=== PATIENT | male | born 1945 | race African-American/Black ===

== ENCOUNTER 2023-08-02 20:38 | Observation (INO) ==
--- NOTE | 2023-08-02 20:56 | Emergency Department Note ---
Impression & Plan Altered mental status ED Provider Note ED Provider Note NAME: SHANON [id number] CHRISTA AGE:78 SEX: Male : 1945 ARRIVES VIA: EMS INFORMANT: Patient ED PROVIDER(s): Yolanda Pinzon DO CHIEF COMPLAINT: Altered mental status HPI: This is a 78-year-old male presents via EMS from a local correctional facility due to staff concern for altered mental status. Patient reported to be sleeping all day. EMS reports patient was noted to not be acting himself this evening. They state patient typically can walk without difficulty and mother does have a history of dementia typically can carry on mostly normal conversations. They state that they noticed patient was having difficulty walking and appeared to be leaning to the left. He denied any complaints of pain including headaches, denied dizziness. EMS states staff reported no other recent changes. Prehospital blood glucose reassuring. EMS reports patient appeared to be in atrial fibrillation during transport although on arrival here appears to be in a sinus rhythm. No reported trauma or injury. No anticoagulation on medication list. PAST MEDICAL HISTORY:See Below PAST SURGICAL HISTORY:See Below FAMILY HISTORY:See Below SOCIAL HISTORY:See Below HOME MEDICATIONS:See Below ALLERGIES:See Below VITALS:See Below PHYSICAL EXAMINATION: GENERAL: alert, well appearing, well nourished, no distress, non-toxic, shackles in place upper and lower extremities b/l EYE EXAM: normal conjunctiva, PERRL and EOM's grossly intact OROPHARYNX: no exudate, no erythema, lips, buccal mucosa, and tongue normal and mucous membranes are moist, poor dentition NECK: supple, no nuchal rigidity, no adenopathy, non-tender LUNGS: Clear to auscultation. Normal chest wall mechanics, no w/r/r HEART: no murmurs, S1 normal and S2 normal ABDOMEN: abdomen soft, non-tender, normo-active bowel sounds, no masses, no rebound or guarding. BACK: Back is symmetrical on inspection and there is no deformity, no midline tenderness, no CVA tenderness. SKIN: no rashes, petechiae, orbruising UPPER EXTREMITIES: upper extremities are grossly normal. FROM, nml pulses b/l. LOWER EXTREMITIES: No pitting edema. FROM, nml pulses b/l. NEURO EXAM: Confused, cranial nerves II-XII grossly intact, normal speech, no facial droop,patient with equal handgrip, and wiggles toes bilaterally, gross sensation intact. No ataxia. When shackles were removed, patient could not follow commands for further neuro testing. Vital Signs: reviewed and remarkable Differential Diagnosis: dehydration, stroke, anemia, hypoglycemia, hyponatremia, hypernatremia, urinary tract infection, pneumonia, bronchitis, sepsis, gastroenteritis, additional abdominal pathology, metabolic abnormalities, as well as others were considered MEDICAL DECISION MAKING: This is a 78-year-old male presents from a local correctional facility due to concern for altered mental status. Difficulty obtaining any history from the patient due to his history of dementia. Labs drawn and sent, IV established, EKG and chest x-ray performed bedside interpreted by me and patient monitor on telemetry. He was started on gentle IV fluid hydration and sent for CT/CTA. He continued to be well-appearing throughout and denied any pain, he did not appear to be in any distress. It was difficult to have the patient perform a neurologic exam although his handgrips did seem equal and he was moving all extremities spontaneously. He could not cooperate for other neuro testing. CT angiography revealed likely thrombotic disease. Due to concern for findings initially reported by staff who know him best and in consideration for age despite limitations of the exam and ability to obtain history at bedside, the case was discussed with the hospitalist team for additional evaluation and management. I did call and update the RN in the infirmary at [facility] to discuss evaluation here and need for admission as well as else so to confirm patient's baseline mentation and last known well. Consultation(s): 0135: Discussed with RENÉ Duncan, at [facility]. Last known well 1135 am when patient went to bed. He tends to be awake at night and sleeps during the day. He did not get up at his normal time, and so the staff went in to wake him up at 7pm and noticed he was not his normal self. He did not seem to want to talk so he was wheeled to his meal and they felt he was leaning to the left. He did not eat anything offered. Staff concerned due to change in behavior and mentation so 911 called. 0207: Discussed with Dr. Flores, [facility] hospitalist, for additional evaluation and mgmt. ER Treatment Provided: See below Diagnostics Interpreted By Me: -ECG: Normal sinus at 88, leftward axis, normal intervals, no acute ST/T wave changes -Cardiac Monitoring: An order was placed for continuous cardiac monitoring. The monitor shows a rate of 88 with normal sinus rhythm. -Laboratory studies: As stated above and show below. -Imaging studies: X-ray Chest: A single view study of the chest was reviewed and was negative for cardiomegaly, focal infiltrate, effusion, pulmonary edema, or wide mediastinum. Triage Nursing Note Reviewed Prior/Outside Records Reviewed - med list from [facility] reviewed Past Med/Surg History Problem List (Updated 08/03/23 @ 10:05 by Cirilo Elliott DO) Stroke-like symptom Altered mental status (Acute) Social History Smoking Status: Current some day smoker Tobacco Type: Cigarettes Preferred Language: Wolof Rn On Site Required: No Beliefs That Will Affect Care: None Current Living Situation: Other Feels Safe at Home: Yes Allergies Allergies Allergy/AdvReac Type Severity Reaction Status Date / Time No Known Allergies Allergy Verified 08/02/23 21:38 Home Meds Home Medications Medication Instructions Recorded Confirmed amlodipine 5 mg tablet 5 mg PO DAILY 08/02/23 08/02/23 brimonidine 0.2 % eye drops 1 drp OPR BID 08/02/23 08/02/23 dorzolamide-timolol (PF) 2 %-0.5 % 1 drp OPB BID 08/02/23 08/02/23 eye drops in a dropperette (Cosopt (PF)) latanoprost 0.005 % eye drops 1 drp OPR HS 08/02/23 08/02/23 pilocarpine HCl 4 % eye drops 1 drp OPR TID 08/02/23 08/02/23 risperidone 1 mg tablet 1 mg PO HS 08/02/23 08/02/23 risperidone 2 mg tablet 2 mg PO DAILY 08/02/23 08/02/23 sodium chloride 5 % eye drops 1 drp OPL BID 08/02/23 08/02/23 (Brian 128) sodium chloride 5 % eye ointment 1 applic OPL QID 08/02/23 08/02/23 Results & Data (ED) Vital Signs Vital Signs - 24 hr 08/02/23 20:32 08/02/23 20:48 08/02/23 20:51 Temperature 36.9 C Temperature Source Oral Pulse Rate 93 H 93 H Pulse Rate from SpO2 Sensor Respiratory Rate 22 Blood Pressure 119/60 Blood Pressure Mean 79 Blood Pressure Position Lying Pulse Oximetry 96 98 Oxygen Delivery Method Room Air Room Air Sepsis Recent Fever Within 48 Hours No Sepsis New/Unexplained Change in Mental Status Yes Sepsis Action Taken by Nursing Physician Notified 08/02/23 20:51 08/02/23 21:00 08/02/23 21:27 Temperature Temperature Source Pulse Rate 88 88 82 Pulse Rate from SpO2 Sensor 88 88 82 Respiratory Rate 16 17 13 Blood Pressure Blood Pressure Mean Blood Pressure Position Pulse Oximetry 99 100 98 Oxygen Delivery Method Sepsis Recent Fever Within 48 Hours Sepsis New/Unexplained Change in Mental Status Sepsis Action Taken by Nursing 08/02/23 22:00 08/02/23 22:00 08/02/23 23:30 Temperature Temperature Source Pulse Rate 85 74 Pulse Rate from SpO2 Sensor Respiratory Rate 14 18 Blood Pressure 146/102 H 128/91 Blood Pressure Mean 132 103 Blood Pressure Position Pulse Oximetry 96 Oxygen Delivery Method Sepsis Recent Fever Within 48 Hours Sepsis New/Unexplained Change in Mental Status Sepsis Action Taken by Nursing 08/03/23 00:37 Temperature Temperature Source Pulse Rate 68 Pulse Rate from SpO2 Sensor Respiratory Rate Blood Pressure Blood Pressure Mean Blood Pressure Position Pulse Oximetry Oxygen Delivery Method Sepsis Recent Fever Within 48 Hours Sepsis New/Unexplained Change in Mental Status Sepsis Action Taken by Nursing Laboratory Data 08/03/23 05:58 08/03/23 04:10 Lab Results 08/02/23 08/02/23 08/02/23 Range/Units 21:10 21:10 21:12 WBC 6.40 (4.8-10.8) K/ul RBC 4.95 (4.70-6.10) M/uL Hgb 13.9 L (14.0-18.0) g/dl POC Hgb 13.9 L (14.0-18.0) g/dl Hct 41.1 L (42.0-52.0) % POC Hct 41 L (42-52) % MCV 83.0 (80.0-100.0) fL MCH 28.1 (25.0-34.0) pg MCHC 33.8 (32.0-36.0) g/dL RDW Std Deviation 39.1 (36.4-46.3) fL RDW Coeff of Carolyn 13.1 (11.5-14.5) % Plt Count 148 (130-400) K/uL MPV 10.2 (9.4-12.4) fL Immature Gran % (Auto) 0.3 % Neut % (Auto) 71.5 % Lymph % (Auto) 17.0 % Walker % (Auto) 8.8 % Eos % (Auto) 1.9 % Baso % (Auto) 0.5 % Neut # (Auto) 4.58 (1.40-6.50) K/uL Lymph # (Auto) 1.09 L (1.20-3.40) K/uL Walker # (Auto) 0.56 (0.11-0.59) K/uL Eos # (Auto) 0.12 (0.00-0.50) K/uL Baso # (Auto) 0.03 (0.00-0.20) K/uL Immature Gran # (Auto) 0.02 (0.01-0.20) K/uL PT 11.4 (9.0-12.0) Seconds INR 1.1 (0.9-1.1) APTT 31 (21-31) Seconds PTT Ratio 1.2 POC Sodium 143 (135-144) mmol/L Sodium 142 (136-145) mmol/L POC Potassium 3.6 (3.3-5.0) mmol/L Potassium 3.7 (3.5-5.1) mmol/L POC Chloride 108 (101-112) mmol/L Chloride 108 H (98-107) mmol/L Carbon Dioxide 27 (21-32) mmol/L POC Total CO2 25 (24-31) mmol/L Anion Gap 7 (3-11) POC Anion Gap 15.0 L (16-25) mmol/L POC BUN 22 H (7-18) mg/dl BUN 24 H (6-23) mg/dl Creatinine 1.11 (0.6-1.4) mg/dl POC Creatinine 1.1 (0.6-1.3) mg/dl Est Cr Clr Drug Dosing 56.6 ml/min Est GFR ( Amer) 74.4 ml/min Est GFR (Non-Af Amer) 64.2 ml/min BUN/Creatinine Ratio 21.6 H (10-20) Glucose 112 H (70-99(Fasting)) mg/dl POC Glucose (other) 111 H (70-99) mg/dl Estimat Average Glucose mg/dl Estimated Ave Glu mmol/L 6.6 mmol/L Estimated Ave Glu mg/dL 120 mg/dL Hemoglobin A1c 5.8 H (4.5-5.6) % Hgb A1c Pathologist Com Calcium 10.3 (8.6-10.3) mg/dl POC Ioniz Calcium Richard 1.27 (1.12-1.32) mmol/l Magnesium 2.0 (1.7-2.4) mg/dl Total Bilirubin 0.6 (0.2-1.0) mg/dl AST 40 H (13-39) U/L ALT 14 (7-52) U/L Alkaline Phosphatase 56 (34-104) U/L Troponin I High Sens 24.2 H (0-20) pg/ml Total Protein 7.3 (6.0-8.3) gm/dl Albumin 4.4 (3.4-5.0) gm/dl Globulin 2.9 (2.5-4.0) gm/dl Albumin/Globulin Ratio 1.5 (0.9-2) TSH 3.536 (0.300-4.500) uIu/ml 08/02/23 Range/Units 23:23 WBC (4.8-10.8) K/ul RBC (4.70-6.10) M/uL Hgb (14.0-18.0) g/dl POC Hgb (14.0-18.0) g/dl Hct (42.0-52.0) % POC Hct (42-52) % MCV (80.0-100.0) fL MCH (25.0-34.0) pg MCHC (32.0-36.0) g/dL RDW Std Deviation (36.4-46.3) fL RDW Coeff of Carolyn (11.5-14.5) % Plt Count (130-400) K/uL MPV (9.4-12.4) fL Immature Gran % (Auto) % Neut % (Auto) % Lymph % (Auto) % Walker % (Auto) % Eos % (Auto) % Baso % (Auto) % Neut # (Auto) (1.40-6.50) K/uL Lymph # (Auto) (1.20-3.40) K/uL Walker # (Auto) (0.11-0.59) K/uL Eos # (Auto) (0.00-0.50) K/uL Baso # (Auto) (0.00-0.20) K/uL Immature Gran # (Auto) (0.01-0.20) K/uL PT (9.0-12.0) Seconds INR (0.9-1.1) APTT (21-31) Seconds PTT Ratio POC Sodium (135-144) mmol/L Sodium (136-145) mmol/L POC Potassium (3.3-5.0) mmol/L Potassium (3.5-5.1) mmol/L POC Chloride (101-112) mmol/L Chloride (98-107) mmol/L Carbon Dioxide (21-32) mmol/L POC Total CO2 (24-31) mmol/L Anion Gap (3-11) POC Anion Gap (16-25) mmol/L POC BUN (7-18) mg/dl BUN (6-23) mg/dl Creatinine (0.6-1.4) mg/dl POC Creatinine (0.6-1.3) mg/dl Est Cr Clr Drug Dosing ml/min Est GFR ( Amer) ml/min Est GFR (Non-Af Amer) ml/min BUN/Creatinine Ratio (10-20) Glucose (70-99(Fasting)) mg/dl POC Glucose (other) (70-99) mg/dl Estimat Average Glucose mg/dl Estimated Ave Glu mmol/L mmol/L Estimated Ave Glu mg/dL mg/dL Hemoglobin A1c (4.5-5.6) % Hgb A1c Pathologist Com Calcium (8.6-10.3) mg/dl POC Ioniz Calcium Richard (1.12-1.32) mmol/l Magnesium (1.7-2.4) mg/dl Total Bilirubin (0.2-1.0) mg/dl AST (13-39) U/L ALT (7-52) U/L Alkaline Phosphatase (34-104) U/L Troponin I High Sens 26.6 H (0-20) pg/ml Total Protein (6.0-8.3) gm/dl Albumin (3.4-5.0) gm/dl Globulin (2.5-4.0) gm/dl Albumin/Globulin Ratio (0.9-2) TSH (0.300-4.500) uIu/ml Administered Medications Amlodipine Besylate (Amlodipine Besylate 5 Mg Tab) 5 mg PO QAM [facility] Stop: 09/03/23 08:59 Last Admin: 08/04/23 07:53 Dose: 5 mg Documented By: NGOZI Aspirin (Aspirin 81 Mg Ectab) 81 mg PO DAILY [facility] Stop: 09/03/23 08:59 Last Admin: 08/04/23 07:52 Dose: 81 mg Documented By: NGOZI Atorvastatin Calcium (Atorvastatin 20 Mg Tab) 20 mg PO QAM [facility] Stop: 09/02/23 08:59 Last Admin: 08/04/23 07:53 Dose: 20 mg Documented By: Admin: 08/03/23 10:56 Dose: 20 mg Documented By: NGOZI Brimonidine Tartrate (Brimonidine Tartrate 0.2% 5ml) 1 drops OPR BID [facility] Stop: 09/02/23 08:59 Last Admin: 08/04/23 07:54 Dose: 1 drops Documented By: Admin: 08/03/23 22:00 Dose: 1 drops Documented By: Admin: 08/03/23 09:03 Dose: 1 drops Documented By: KIMBERLY Clopidogrel Bisulfate (Clopidogrel Bisulfate 75 Mg Tab) [facility] [place]: 09/02/23 14:44 Last Admin: 08/04/23 07:53 Dose: 75 mg Documented By: Admin: 08/03/23 18:32 Dose: 75 mg Documented By: NGOZI Dorzolamide/Timolol (Dorzolamide/Timolol 22.3/6.8mg/Ml 10 Ml Btl) 1 drops OPB BID [facility] Stop: 09/02/23 08:59 Last Admin: 08/04/23 07:54 Dose: 1 drops Documented By: Admin: 08/03/23 22:00 Dose: 1 drops Documented By: Admin: 08/03/23 09:09 Dose: Not Given Documented By: KIMBERLY Enoxaparin Sodium (Enoxaparin Inj 40 Mg/0.4 Ml Syr) [facility] [place]: 09/02/23 08:59 Last Admin: 08/04/23 07:53 Dose: 40 mg Documented By: Admin: 08/03/23 09:04 Dose: 40 mg Documented By: KIMBERLY Latanoprost (Latanoprost 0.005% Op Soln 2.5 Ml Btl) 1 drops OPR HS ELISA Stop: 09/02/23 20:59 Last Admin: 08/04/23 05:54 Dose: Not Given Documented By: KRT Pilocarpine HCl (Pilocarpine Hcl 4% Op Soln 15 Ml Btl) 1 drops OPR TID ELISA Stop: 09/02/23 08:59 Last Admin: 08/04/23 07:54 Dose: 1 drops Documented By: Admin: 08/03/23 22:00 Dose: 1 drops Documented By: Admin: 08/03/23 14:15 Dose: Not Given Documented By: Admin: 08/03/23 09:03 Dose: 1 drops Documented By: JEFFERSONN Risperidone (Risperidone 2 Mg Tablet) 2 mg PO DAILY ELISA Stop: 09/02/23 08:59 Last Admin: 08/04/23 07:53 Dose: 2 mg Documented By: Admin: 08/03/23 10:50 Dose: 2 mg Documented By: NGOZI Risperidone (Risperidone 1 Mg Tablet) 1 mg PO HS [facility] Stop: 09/02/23 20:59 Last Admin: 08/04/23 05:54 Dose: Not Given Documented By: KRT Sodium Chloride (Sodium Chloride 5% Op Soln 15 Ml Btl) 1 drops OPL BID ELISA Stop: 09/02/23 08:59 Last Admin: 08/04/23 07:54 Dose: 1 drops Documented By: Admin: 08/03/23 22:00 Dose: 1 drops Documented By: Admin: 08/03/23 09:13 Dose: 1 drops Documented By: MMDay Sodium Chloride (Sodium Chloride 5% (Brian) Op Oint 3.5 Gm Tube) 1 appln OPL QID ELISA Stop: 09/02/23 08:59 Last Admin: 08/04/23 07:54 Dose: 1 appln Documented By: Admin: 08/03/23 22:00 Dose: 1 appln Documented By: Admin: 08/03/23 18:33 Dose: 1 appln Documented By: Admin: 08/03/23 14:14 Dose: Not Given Documented By: Admin: 08/03/23 09:12 Dose: 1 appln Documented By: MMDay Discontinued Medications Amlodipine Besylate (Amlodipine Besylate 5 Mg Tab) 5 mg PO NOW ONE Stop: 08/03/23 18:03 Last Admin: 08/03/23 18:32 Dose: 5 mg Documented By: NGOZI Aspirin (Aspirin 81 Mg Chew) 324 mg PO NOW STA Stop: 08/03/23 02:24 Last Admin: 08/03/23 04:04 Dose: Not Given Documented By: YOLIE Aspirin (Aspirin 300 Mg Supp) 300 mg LA ONE ONE Stop: 08/03/23 02:47 Last Admin: 08/03/23 03:48 Dose: 300 mg Documented By: YOLIE Sodium Chloride (Nss) 1,000 mls @ 150 mls/hr IV .Q6H40M ELISA Stop: 09/01/23 20:59 Last Infusion: 08/03/23 04:08 Dose: Infused Documented By: Admin: 08/02/23 22:04 Dose: 150 mls/hr Documented By: BRIDGER Potassium Chloride 20 meq/ (Lactated Ringer's) 1,010 mls @ 100 mls/hr IV .Q10H6M ONE Stop: 08/03/23 12:35 Last Infusion: 08/03/23 14:18 Dose: Infused Documented By: Infusion: 08/03/23 05:50 Dose: 100 mls/hr Documented By: Admin: 08/03/23 04:01 Dose: 80 mls/hr Documented By: YOLIE Lorazepam 0.5 mg/ Syringe 0.5 mls @ 2 mls/min IV ONE ONE Stop: 08/03/23 14:16 Last Admin: 08/03/23 14:15 Dose: 2 mls/min Documented By: NGOZI Ioversol (Optiray 320 125ml) 119 ml IV ONCE ONE Stop: 08/02/23 21:22 Last Admin: 08/02/23 21:22 Dose: 119 ml Documented By: ASHLIE Olanzapine (Olanzapine Zydis 5 Mg Orally Dis. Tab) 5 mg PO ONE ONE Stop: 08/03/23 16:15 Last Admin: 08/03/23 18:32 Dose: 5 mg Documented By: NGOZI Imaging Data Radiologist's Impression: Head CT 08/02/23 20:51 Exam(s): CT HEAD Without Contrast EXAM: CT Head Without Intravenous Contrast CLINICAL HISTORY: Reason for exam: neuro deficit, acute stroke suspected. TECHNIQUE: Axial computed tomography images of the head/brain without intravenous contrast. CTDI is 31.65 mGy and DLP is 320.01 mGy-cm. Automated exposure control was utilized for the study. A dose lowering technique was utilized adhering to the principles of ALARA. COMPARISON: No relevant prior studies available. FINDINGS: Study is suboptimal secondary to motion artifact. Brain: Unremarkable. No hemorrhage. No significant white matter disease. No edema. Ventricles: Mild to moderate ventriculomegaly. Bones/joints: Unremarkable. No acute fracture. Soft tissues: Unremarkable. Sinuses: Unremarkable as visualized. No acute sinusitis. Mastoid air cells: Unremarkable as visualized. No mastoid effusion. IMPRESSION: No evidence of acute intracranial pathology. Electronically signed by: Shara Lugo MD 08/03/23 00:09 AM Head CTA 08/02/23 20:51 CR Exam(s): CTA HEAD With Contrast IV Amt: 120 ML OPTIRAY 320 EXAM: CT Angiography Head With Intravenous Contrast CLINICAL HISTORY: Reason for exam: neuro deficit, acute stroke suspected. TECHNIQUE: Axial computed tomographic angiography images of the head with intravenous contrast. CTDI is 67.93 mGy and DLP is 1098.96 mGy-cm. Automated exposure control was utilized for the study. A dose lowering technique was utilized adhering to the principles of ALARA. MIP reconstructed images were created and reviewed. CONTRAST: Patient received 120 ML OPTIRAY 320 of IV contrast COMPARISON: No relevant prior studies available. FINDINGS: Right internal carotid artery: No acute findings. Intracranial segment is patent with no significant stenosis. No aneurysm. Right anterior cerebral artery: Unremarkable. No occlusion or significant stenosis. No aneurysm. Right middle cerebral artery: Unremarkable. No occlusion or significant stenosis. No aneurysm. Right posterior cerebral artery: There is abrupt high-grade stenosis of the right P1 segment with recannulization and diminished enhancement of the distal vessel.. No aneurysm. Right vertebral artery: Unremarkable as visualized. Left internal carotid artery: No acute findings. Intracranial segment is patent with no significant stenosis. No aneurysm. Left anterior cerebral artery: Unremarkable. No occlusion or significant stenosis. No aneurysm. Left middle cerebral artery: Unremarkable. No occlusion or significant stenosis. No aneurysm. Left posterior cerebral artery: Unremarkable. No occlusion or significant stenosis. No aneurysm. Left vertebral artery: Unremarkable as visualized. Basilar artery: Unremarkable. No occlusion or significant stenosis. No aneurysm. IMPRESSION: Focal high-grade stenosis of the right P1 segment with diminished enhancement of the distal vessel concerning for acute thrombotic disease. Communications: Verify Receipt Electronically signed by: Shara Lugo MD 08/03/23 00:06 AM Neck CTA 08/02/23 20:51 Exam(s): CTA NECK With Contrast IV Amt: 120 ML OPTIRAY 320 EXAM: CT Angiography Neck With Intravenous Contrast CLINICAL HISTORY: Reason for exam: neuro deficit, acute stroke suspected. TECHNIQUE: Routine carotid CT angiography protocol was performed with intravenous contrast. NASCET criteria using the distal ICAs for comparison were used for evaluation of stenoses. CTDI is 64.34 mGy and DLP is 1098.96 mGy-cm. Automated exposure control was utilized for the study. A dose lowering technique was utilized adhering to the principles of ALARA. MIP reconstructed images were created and reviewed. CONTRAST: Patient received 120 ML OPTIRAY 320 of IV contrast COMPARISON: None. FINDINGS: VASCULATURE: Right common carotid artery: Unremarkable. No occlusion or significant stenosis. No dissection. Right internal carotid artery: Unremarkable. Extracranial segment is patent with no occlusion or significant stenosis. No dissection. Right external carotid artery: Unremarkable. No occlusion. Right vertebral artery: Unremarkable. No occlusion or significant stenosis. No dissection. Left common carotid artery: Unremarkable. No occlusion or significant stenosis. No dissection. Left internal carotid artery: Unremarkable. Extracranial segment is patent with no occlusion or significant stenosis. No dissection. Left external carotid artery: Unremarkable. No occlusion. Left vertebral artery: Unremarkable. No occlusion or significant stenosis. No dissection. NECK: Bones/joints: Unremarkable. No acute fracture. Soft tissues: Unremarkable. Lung apices: Clear. CAROTID STENOSIS REFERENCE USING NASCET CRITERIA: % ICA stenosis = (1 - narrowest ICA diameter/diameter of distal cervical ICA) x 100. Mild - <50% stenosis. Moderate - 50-69% stenosis. Severe - 70-94% stenosis. Near occlusion - 95-99% stenosis. Occluded - 100% stenosis. IMPRESSION: Negative CTA neck. Electronically signed by: Shara Lugo MD 08/03/23 00:10 AM Discharge Plan Visit Data Chief Complaint: Altered Mental Status Stated Complaint: AMS, LEANING TO L SIDE, HX OF DEMENTIA ED Provider: Yolanda Pinzon Discharge Problem: Altered mental status Patient Disposition: Admitted As Inpatient Discharge Instructions Interventions: ED Discharge Assessment Last Done: 08/03/23 04:21
[2023-08-02] MEDS: OPTIRAY 320 125ml IV ONE (21:22)
[2023-08-02 21:24] LABS: iSTAT Creatinine 1.1 mg/dl (0.6-1.3); iSTAT Hemoglobin 13.9 g/dl (14.0-18.0); iSTAT Ionized Calcium 1.27 mmol/l (1.12-1.32); iSTAT Potassium 3.6 mmol/L (3.3-5.0)
[2023-08-02 21:44] LABS: Basophils # (auto) 0.03 K/uL (0.00-0.20); Basophils % (auto) 0.5 %; Eosinophils # (auto) 0.12 K/uL (0.00-0.50); Eosinophils % (auto) 1.9 %; Hematocrit (blood only) 41.1 % (42.0-52.0); Hemoglobin 13.9 g/dl (14.0-18.0); Immature Granulocytes # (auto) 0.02 K/uL (0.01-0.20); Immature Granulocytes % (auto) 0.3 %; Lymphocytes # (auto) 1.09 K/uL (1.20-3.40); Mean Corpuscular Hemoglobin 28.1 pg (25.0-34.0); Mean Corpuscular Hgb Conc 33.8 g/dL (32.0-36.0); Mean Platelet Volume 10.2 fL (9.4-12.4); Monocytes # (auto) 0.56 K/uL (0.11-0.59); Monocytes % (auto) 8.8 %; Neutrophils # (auto) 4.58 K/uL (1.40-6.50); Neutrophils % (auto) 71.5 %; Platelet Count 148 K/uL (130-400); RDW Coefficient of Variation 13.1 % (11.5-14.5); RDW Standard Deviation 39.1 fL (36.4-46.3); Red Blood Count 4.95 M/uL (4.70-6.10)
[2023-08-02 21:47] LABS: Albumin Globulin Ratio 1.5 (0.9-2); Albumin Level 4.4 gm/dl (3.4-5.0); BUN Creatinine Ratio 21.6 (10-20); Bilirubin,Total 0.6 mg/dl (0.2-1.0); Calcium 10.3 mg/dl (8.6-10.3); Creatinine Clr Calc Pharmacy 56.6 ml/min; Est GFR (African American) 74.4 ml/min; Est GFR (Non-African American) 64.2 ml/min; Globulin 2.9 gm/dl (2.5-4.0); Potassium 3.7 mmol/L (3.5-5.1); Total Protein 7.3 gm/dl (6.0-8.3)
[2023-08-02 21:52] LABS: Troponin I High Sensitivity 24.2 pg/ml (0-20)
[2023-08-02 21:58] LABS: INR 1.1 (0.9-1.1); Partial Thromboplastin Ratio 1.2; Partial Thromboplastin Time 31 Seconds (21-31); Prothrombin Time 11.4 Seconds (9.0-12.0)
[2023-08-02] MEDS: SODIUM CHLORIDE 0.9% 1,000 ML IV SCH (22:04)
--- NOTE | 2023-08-03 00:07 | CT Scan Report ---
Exam(s): CTA HEAD With Contrast IV Amt: 120 ML OPTIRAY 320 EXAM: CT Angiography Head With Intravenous Contrast CLINICAL HISTORY: Reason for exam: neuro deficit, acute stroke suspected. TECHNIQUE: Axial computed tomographic angiography images of the head with intravenous contrast. CTDI is 67.93 mGy and DLP is 1098.96 mGy-cm. Automated exposure control was utilized for the study. A dose lowering technique was utilized adhering to the principles of ALARA. MIP reconstructed images were created and reviewed. CONTRAST: Patient received 120 ML OPTIRAY 320 of IV contrast COMPARISON: No relevant prior studies available. FINDINGS: Right internal carotid artery: No acute findings. Intracranial segment is patent with no significant stenosis. No aneurysm. Right anterior cerebral artery: Unremarkable. No occlusion or significant stenosis. No aneurysm. Right middle cerebral artery: Unremarkable. No occlusion or significant stenosis. No aneurysm. Right posterior cerebral artery: There is abrupt high-grade stenosis of the right P1 segment with recannulization and diminished enhancement of the distal vessel.. No aneurysm. Right vertebral artery: Unremarkable as visualized. Left internal carotid artery: No acute findings. Intracranial segment is patent with no significant stenosis. No aneurysm. Left anterior cerebral artery: Unremarkable. No occlusion or significant stenosis. No aneurysm. Left middle cerebral artery: Unremarkable. No occlusion or significant stenosis. No aneurysm. Left posterior cerebral artery: Unremarkable. No occlusion or significant stenosis. No aneurysm. Left vertebral artery: Unremarkable as visualized. Basilar artery: Unremarkable. No occlusion or significant stenosis. No aneurysm. IMPRESSION: Focal high-grade stenosis of the right P1 segment with diminished enhancement of the distal vessel concerning for acute thrombotic disease. Communications: Verify Receipt Electronically signed by: Shara Lugo MD 08/03/23 00:06 AM
--- NOTE | 2023-08-03 00:09 | CT Scan Report ---
Exam(s): CT HEAD Without Contrast EXAM: CT Head Without Intravenous Contrast CLINICAL HISTORY: Reason for exam: neuro deficit, acute stroke suspected. TECHNIQUE: Axial computed tomography images of the head/brain without intravenous contrast. CTDI is 31.65 mGy and DLP is 320.01 mGy-cm. Automated exposure control was utilized for the study. A dose lowering technique was utilized adhering to the principles of ALARA. COMPARISON: No relevant prior studies available. FINDINGS: Study is suboptimal secondary to motion artifact. Brain: Unremarkable. No hemorrhage. No significant white matter disease. No edema. Ventricles: Mild to moderate ventriculomegaly. Bones/joints: Unremarkable. No acute fracture. Soft tissues: Unremarkable. Sinuses: Unremarkable as visualized. No acute sinusitis. Mastoid air cells: Unremarkable as visualized. No mastoid effusion. IMPRESSION: No evidence of acute intracranial pathology. Electronically signed by: Shara Lugo MD 08/03/23 00:09 AM
--- NOTE | 2023-08-03 00:11 | CT Scan Report ---
Exam(s): CTA NECK With Contrast IV Amt: 120 ML OPTIRAY 320 EXAM: CT Angiography Neck With Intravenous Contrast CLINICAL HISTORY: Reason for exam: neuro deficit, acute stroke suspected. TECHNIQUE: Routine carotid CT angiography protocol was performed with intravenous contrast. NASCET criteria using the distal ICAs for comparison were used for evaluation of stenoses. CTDI is 64.34 mGy and DLP is 1098.96 mGy-cm. Automated exposure control was utilized for the study. A dose lowering technique was utilized adhering to the principles of ALARA. MIP reconstructed images were created and reviewed. CONTRAST: Patient received 120 ML OPTIRAY 320 of IV contrast COMPARISON: None. FINDINGS: VASCULATURE: Right common carotid artery: Unremarkable. No occlusion or significant stenosis. No dissection. Right internal carotid artery: Unremarkable. Extracranial segment is patent with no occlusion or significant stenosis. No dissection. Right external carotid artery: Unremarkable. No occlusion. Right vertebral artery: Unremarkable. No occlusion or significant stenosis. No dissection. Left common carotid artery: Unremarkable. No occlusion or significant stenosis. No dissection. Left internal carotid artery: Unremarkable. Extracranial segment is patent with no occlusion or significant stenosis. No dissection. Left external carotid artery: Unremarkable. No occlusion. Left vertebral artery: Unremarkable. No occlusion or significant stenosis. No dissection. NECK: Bones/joints: Unremarkable. No acute fracture. Soft tissues: Unremarkable. Lung apices: Clear. CAROTID STENOSIS REFERENCE USING NASCET CRITERIA: % ICA stenosis = (1 - narrowest ICA diameter/diameter of distal cervical ICA) x 100. Mild - <50% stenosis. Moderate - 50-69% stenosis. Severe - 70-94% stenosis. Near occlusion - 95-99% stenosis. Occluded - 100% stenosis. IMPRESSION: Negative CTA neck. Electronically signed by: Shara Lugo MD 08/03/23 00:10 AM
--- NOTE | 2023-08-03 02:46 | History & Physical Report ---
Date of Service August 03, 2023 Assessment & Plan (1) Altered mental status: Plan: Possible facial droop left with reported leaning to the left side possible CVA, thrombotic disease on CT angio head Rule out UTI Transient A-fib as per EMS report, patient currently NSR Hypertension, stable Hyperglycemia rule out DM Past tobacco abuse Medical telemetry Neurochecks Aspirin, statin Rx for secondary stroke prevention MRI brain, TTE for stroke workup Neurology consult re: possible CVA with left-sided facial droop Cardiology consult if with recurrent A-fib Check hemoglobin A1c, lipid profile Check UA DVT prophylaxis. Lovenox subcu Full code as per SCI Text document was generated using [employer] voice recognition software. It may contain grammatical or spelling errors. Kindly contact undersigned for clarification of any documentation item in ques tion. History of Present Illness Chief Complaint: Altered mental status, Primary Care Provider: [facility] Treadwell History obtained from ER provider and records. Unable to obtain history from patient secondary to obtunded state. Medical history significant for hypertension, dementia, glaucoma, tobacco abuse as per records. Patient noted to be confused last night. Having trouble walking and leaning to the left side. EMS called to correction[facility] facility. Possible A-fib during transport as per report. Patient brought to the ER for evaluation. Medical History as above Surgical History : Could not be obtained due to obtunded state Family History : Could not be obtained due to obtunded state Personal/Social history : Past tobacco abuse, [facility] inmate Allergies Allergy/AdvReac Type Severity Reaction Status Date / Time No Known Allergies Allergy Verified 08/02/23 21:38 Home Medications Medication Instructions Recorded Confirmed Type amlodipine 5 mg tablet 5 mg PO DAILY 08/02/23 08/02/23 History brimonidine 0.2 % eye drops 1 drp OPR BID 08/02/23 08/02/23 History dorzolamide-timolol (PF) 2 %-0.5 % 1 drp OPB BID 08/02/23 08/02/23 History eye drops in a dropperette (Cosopt (PF)) latanoprost 0.005 % eye drops 1 drp OPR HS 08/02/23 08/02/23 History pilocarpine HCl 4 % eye drops 1 drp OPR TID 08/02/23 08/02/23 History risperidone 1 mg tablet 1 mg PO HS 08/02/23 08/02/23 History risperidone 2 mg tablet 2 mg PO DAILY 08/02/23 08/02/23 History sodium chloride 5 % eye drops 1 drp OPL BID 08/02/23 08/02/23 History (Brian 128) sodium chloride 5 % eye ointment 1 applic OPL QID 08/02/23 08/02/23 History Past Med/Surg History Problem List (Updated 08/02/23 @ 20:56 by Yolanda Pinzon, ) Altered mental status (Acute) Social History Smoking Status: Current every day smoker Tobacco Type: Cigarettes Feels Safe at Home: Yes Review of Systems Review of Systems: Could not be reliably obtained secondary to obtunded state Physical Exam Physical Exam: GENERAL: Obtunded, no respiratory distress SKIN: Normal color, warm HEENT: [place] palpebral conjunctivae, possible left facial droop, no ptosis, dry buccal mucosa NECK : Supple, no tenderness CHEST : Decreased breath sounds, no tenderness HEART : RRR, no obvious murmurs ABDOMEN: Some distention, nontender EXTREMITIES : No LE swelling/tenderness, no other conspicuous deformities noted NEUROLOGIC : Obtunded, possible left facial droop, gait and stance not assessed Results & Data Results & Data Vital Signs (Past 12 Hours) Vital Signs Temp Pulse Resp BP Pulse Ox O2 Del Method 08/03/23 00:37 68 08/02/23 23:30 74 18 128/91 96 08/02/23 22:00 85 14 08/02/23 22:00 146/102 H 08/02/23 21:27 82 13 98 08/02/23 21:00 88 17 100 08/02/23 20:51 88 16 99 08/02/23 20:51 93 H 08/02/23 20:48 36.9 C 93 H 22 119/60 98 Room Air 08/02/23 20:32 96 Room Air Laboratory Results Laboratory Results WBC 6.40 K/ul (4.8-10.8) 08/02/23 21:10 RBC 4.95 M/uL (4.70-6.10) 08/02/23 21:10 Hgb 13.9 g/dl (14.0-18.0) L 08/02/23 21:10 POC Hgb 13.9 g/dl (14.0-18.0) L 08/02/23 21:12 Hct 41.1 % (42.0-52.0) L 08/02/23 21:10 POC Hct 41 % (42-52) L 08/02/23 21:12 MCV 83.0 fL (80.0-100.0) 08/02/23 21:10 MCH 28.1 pg (25.0-34.0) 08/02/23 21:10 MCHC 33.8 g/dL (32.0-36.0) 08/02/23 21:10 RDW Std Deviation 39.1 fL (36.4-46.3) 08/02/23 21:10 RDW Coeff of Carolyn 13.1 % (11.5-14.5) 08/02/23 21:10 Plt Count 148 K/uL (130-400) 08/02/23 21:10 MPV 10.2 fL (9.4-12.4) 08/02/23 21:10 Immature Gran % (Auto) 0.3 % 08/02/23 21:10 Neut % (Auto) 71.5 % 08/02/23 21:10 Lymph % (Auto) 17.0 % 08/02/23 21:10 [place] % (Auto) 8.8 % 08/02/23 21:10 Eos % (Auto) 1.9 % 08/02/23 21:10 Baso % (Auto) 0.5 % 08/02/23 21:10 Neut # (Auto) 4.58 K/uL (1.40-6.50) 08/02/23 21:10 Lymph # (Auto) 1.09 K/uL (1.20-3.40) L 08/02/23 21:10 [place] # (Auto) 0.56 K/uL (0.11-0.59) 08/02/23 21:10 Eos # (Auto) 0.12 K/uL (0.00-0.50) 08/02/23 21:10 Baso # (Auto) 0.03 K/uL (0.00-0.20) 08/02/23 21:10 Immature Gran # (Auto) 0.02 K/uL (0.01-0.20) 08/02/23 21:10 PT 11.4 Seconds (9.0-12.0) 08/02/23 21:10 INR 1.1 (0.9-1.1) 08/02/23 21:10 APTT 31 Seconds (21-31) 08/02/23 21:10 PTT Ratio 1.2 08/02/23 21:10 POC Sodium 143 mmol/L (135-144) 08/02/23 21:12 Sodium 142 mmol/L (136-145) 08/02/23 21:10 POC Potassium 3.6 mmol/L (3.3-5.0) 08/02/23 21:12 Potassium 3.7 mmol/L (3.5-5.1) 08/02/23 21:10 POC Chloride 108 mmol/L (101-112) 08/02/23 21:12 Chloride 108 mmol/L (98-107) H 08/02/23 21:10 Carbon Dioxide 27 mmol/L (21-32) 08/02/23 21:10 POC Total CO2 25 mmol/L (24-31) 08/02/23 21:12 Anion Gap 7 (3-11) 08/02/23 21:10 POC Anion Gap 15.0 mmol/L (16-25) L 08/02/23 21:12 POC BUN 22 mg/dl (7-18) H 08/02/23 21:12 BUN 24 mg/dl (6-23) H 08/02/23 21:10 Creatinine 1.11 mg/dl (0.6-1.4) 08/02/23 21:10 POC Creatinine 1.1 mg/dl (0.6-1.3) 08/02/23 21:12 Est Cr Clr Drug Dosing 56.6 ml/min 08/02/23 21:10 Est GFR ( Amer) 74.4 ml/min 08/02/23 21:10 Est GFR (Non-Af Amer) 64.2 ml/min 08/02/23 21:10 BUN/Creatinine Ratio 21.6 (10-20) H 08/02/23 21:10 Glucose 112 mg/dl (70-99(Fasting)) H 08/02/23 21:10 POC Glucose (other) 111 mg/dl (70-99) H 08/02/23 21:12 Calcium 10.3 mg/dl (8.6-10.3) 08/02/23 21:10 POC Ioniz Calcium Richard 1.27 mmol/l (1.12-1.32) 08/02/23 21:12 Magnesium 2.0 mg/dl (1.7-2.4) 08/02/23 21:10 Total Bilirubin 0.6 mg/dl (0.2-1.0) 08/02/23 21:10 AST 40 U/L (13-39) H 08/02/23 21:10 ALT 14 U/L (7-52) 08/02/23 21:10 Alkaline Phosphatase 56 U/L (34-104) 08/02/23 21:10 Troponin I High Sens 26.6 pg/ml (0-20) H 08/02/23 23:23 Total Protein 7.3 gm/dl (6.0-8.3) 08/02/23 21:10 Albumin 4.4 gm/dl (3.4-5.0) 08/02/23 21:10 Globulin 2.9 gm/dl (2.5-4.0) 08/02/23 21:10 Albumin/Globulin Ratio 1.5 (0.9-2) 08/02/23 21:[address] 08/02/23 20:51 Exam(s): CT HEAD Without Contrast EXAM: CT Head Without Intravenous Contrast CLINICAL HISTORY: Reason for exam: neuro deficit, acute stroke suspected. TECHNIQUE: Axial computed tomography images of the head/brain without intravenous contrast. CTDI is 31.65 mGy and DLP is 320.01 mGy-cm. Automated exposure control was utilized for the study. A dose lowering technique was utilized adhering to the principles of ALARA. COMPARISON: No relevant prior studies available. FINDINGS: Study is suboptimal secondary to motion artifact. Brain: Unremarkable. No hemorrhage. No significant white matter disease. No edema. Ventricles: Mild to moderate ventriculomegaly. Bones/joints: Unremarkable. No acute fracture. Soft tissues: Unremarkable. Sinuses: Unremarkable as visualized. No acute sinusitis. Mastoid air cells: Unremarkable as visualized. No mastoid effusion. IMPRESSION: No evidence of acute intracranial pathology. Electronically signed by: Shara Lugo MD 08/03/23 00:09 AM Head CTA 08/02/23 20:51 CR Exam(s): CTA HEAD With Contrast IV Amt: 120 ML OPTIRAY 320 EXAM: CT Angiography Head With Intravenous Contrast CLINICAL HISTORY: Reason for exam: neuro deficit, acute stroke suspected. TECHNIQUE: Axial computed tomographic angiography images of the head with intravenous contrast. CTDI is 67.93 mGy and DLP is 1098.96 mGy-cm. Automated exposure control was utilized for the study. A dose lowering technique was utilized adhering to the principles of ALARA. MIP reconstructed images were created and reviewed. CONTRAST: Patient received 120 ML OPTIRAY 320 of IV contrast COMPARISON: No relevant prior studies available. FINDINGS: Right internal carotid artery: No acute findings. Intracranial segment is patent with no significant stenosis. No aneurysm. Right anterior cerebral artery: Unremarkable. No occlusion or significant stenosis. No aneurysm. Right middle cerebral artery: Unremarkable. No occlusion or significant stenosis. No aneurysm. Right posterior cerebral artery: There is abrupt high-grade stenosis of the right P1 segment with recannulization and diminished enhancement of the distal vessel.. No aneurysm. Right vertebral artery: Unremarkable as visualized. Left internal carotid artery: No acute findings. Intracranial segment is patent with no significant stenosis. No aneurysm. Left anterior cerebral artery: Unremarkable. No occlusion or significant stenosis. No aneurysm. Left middle cerebral artery: Unremarkable. No occlusion or significant stenosis. No aneurysm. Left posterior cerebral artery: Unremarkable. No occlusion or significant stenosis. No aneurysm. Left vertebral artery: Unremarkable as visualized. Basilar artery: Unremarkable. No occlusion or significant stenosis. No aneurysm. IMPRESSION: Focal high-grade stenosis of the right P1 segment with diminished enhancement of the distal vessel concerning for acute thrombotic disease. Communications: Verify Receipt Electronically signed by: Shara Lugo MD 08/03/23 00:06 AM Neck CTA 08/02/23 20:51 Exam(s): CTA NECK With Contrast IV Amt: 120 ML OPTIRAY 320 EXAM: CT Angiography Neck With Intravenous Contrast CLINICAL HISTORY: Reason for exam: neuro deficit, acute stroke suspected. TECHNIQUE: Routine carotid CT angiography protocol was performed with intravenous contrast. NASCET criteria using the distal ICAs for comparison were used for evaluation of stenoses. CTDI is 64.34 mGy and DLP is 1098.96 mGy-cm. Automated exposure control was utilized for the study. A dose lowering technique was utilized adhering to the principles of ALARA. MIP reconstructed images were created and reviewed. CONTRAST: Patient received 120 ML OPTIRAY 320 of IV contrast COMPARISON: None. FINDINGS: VASCULATURE: Right common carotid artery: Unremarkable. No occlusion or significant stenosis. No dissection. Right internal carotid artery: Unremarkable. Extracranial segment is patent with no occlusion or significant stenosis. No dissection. Right external carotid artery: Unremarkable. No occlusion. Right vertebral artery: Unremarkable. No occlusion or significant stenosis. No dissection. Left common carotid artery: Unremarkable. No occlusion or significant stenosis. No dissection. Left internal carotid artery: Unremarkable. Extracranial segment is patent with no occlusion or significant stenosis. No dissection. Left external carotid artery: Unremarkable. No occlusion. Left vertebral artery: Unremarkable. No occlusion or significant stenosis. No dissection. NECK: Bones/joints: Unremarkable. No acute fracture. Soft tissues: Unremarkable. Lung apices: Clear. CAROTID STENOSIS REFERENCE USING NASCET CRITERIA: % ICA stenosis = (1 - narrowest ICA diameter/diameter of distal cervical ICA) x 100. Mild - <50% stenosis. Moderate - 50-69% stenosis. Severe - 70-94% stenosis. Near occlusion - 95-99% stenosis. Occluded - 100% stenosis. IMPRESSION: Negative CTA neck. Electronically signed by: Shara Lugo MD 08/03/23 00:10 AM Diagnostic Findings EKG as per my interpretation : Rate 90, NSR, LAD, LAFB, no ischemia
[2023-08-03 03:01] LABS: Thyroid Stimulating Hormone 3.536 uIu/ml (0.300-4.500)
[2023-08-03] MEDS ORDERED: ACETAMINOPHEN 325 MG TAB PO PRN (03:24)
[2023-08-03] MEDS ORDERED: PROMETHAZINE HCL 6.25 MG in SODIUM CHLORIDE 0.9% 50 ML IV PRN (03:24)
[2023-08-03] MEDS: ASPIRIN 300 MG SUPP PR ONE (03:48)
[2023-08-03] MEDS: POTASSIUM CHLORIDE 20 MEQ in LACTATED RINGER'S 1,000 ML IV ONE (04:01)
[2023-08-03] MEDS: ASPIRIN 81 MG CHEW PO STA (04:04)
[2023-08-03 04:42] LABS: BUN Creatinine Ratio 21.9 (10-20); Calcium 9.7 mg/dl (8.6-10.3); Chol HDL Ratio 3.2 (0-5); Creatinine Clr Calc Pharmacy 65.5 ml/min; Est GFR (African American) 88.6 ml/min; Est GFR (Non-African American) 76.5 ml/min; Potassium 3.9 mmol/L (3.5-5.1)
[2023-08-03 04:48] LABS: Troponin I High Sensitivity 22.1 pg/ml (0-20)
[2023-08-03 04:51] LABS: Partial Thromboplastin Ratio 1.2; Partial Thromboplastin Time 32 Seconds (21-31)
--- NOTE | 2023-08-03 06:43 | XRay Report ---
KUB CLINICAL HISTORY: MRI clearance. FINDINGS: An AP, portable, supine abdominal radiograph is obtained. No prior studies are available fo r comparison at the time of dictation. There is a nonobstructed abdominal bowel gas pattern. Moderate fecal retention is noted throughout the colon. No evidence of intraperitoneal free air is seen on th is supine image. There are no abnormal abdominal calcifications. The bladder is filled with excreted IV contrast. A bladder diverticulum is noted. The skeletal structures are osteopenic and appear intac t. There is moderate lumbosacral spondylosis. No radiodense/metallic foreign body is identified. IMPRESSION: 1. No radiodense/metallic foreign body is seen. 2. No bowel obstruction. 3. There is evidence of chronic bladder outlet obstruction. Electronically signed by: Alfred Kaiser M.D. 08/03/2023 6:42 AM
[2023-08-03 06:45] LABS: Basophils # (auto) 0.01 K/uL (0.00-0.20); Basophils % (auto) 0.2 %; Eosinophils # (auto) 0.14 K/uL (0.00-0.50); Eosinophils % (auto) 3.1 %; Hematocrit (blood only) 38.7 % (42.0-52.0); Hemoglobin 13.1 g/dl (14.0-18.0); Immature Granulocytes # (auto) 0.01 K/uL (0.01-0.20); Immature Granulocytes % (auto) 0.2 %; Lymphocytes % (auto) 24.6 %; Mean Corpuscular Hemoglobin 28.5 pg (25.0-34.0); Mean Corpuscular Hgb Conc 33.9 g/dL (32.0-36.0); Mean Corpuscular Volume 84.3 fL (80.0-100.0); Mean Platelet Volume 10.3 fL (9.4-12.4); Monocytes # (auto) 0.43 K/uL (0.11-0.59); Monocytes % (auto) 9.6 %; Neutrophils # (auto) 2.79 K/uL (1.40-6.50); Neutrophils % (auto) 62.3 %; Platelet Count 136 K/uL (130-400); RDW Coefficient of Variation 13.2 % (11.5-14.5); RDW Standard Deviation 40.5 fL (36.4-46.3); Red Blood Count 4.59 M/uL (4.70-6.10); White Blood Count 4.48 K/ul (4.8-10.8)
--- NOTE | 2023-08-03 06:55 | XRay Report ---
SKULL 2 VIEWS CLINICAL HISTORY: MRI clearance. FINDINGS: 2 views of the skull are obtained. Correlation is made with CT of the brain dated 08/02/2023. There is no radiodense/metallic foreign body seen in the region of the bony orbits. The bony orbits are intact as imaged. The visualized paranasal sinuses and the mastoid air cells appear clear. The ca lvarium appears intact. IMPRESSION: No radiodense/metallic foreign body is identified. ACT 112: Negative or not required by law. Electronically signed by: Alfred Kaiser M.D. 08/03/2023 6:53 AM
[2023-08-03 07:43] LABS: Appearance Urine Clear (Clear); Bacteria Urine Automated None Seen (None Seen); Bilirubin Urine Negative (Negative); Blood Urine Negative (Negative); Color Urine Yellow; Epithelial Cell Urine Auto 0-2 /hpf (0-2); Glucose Urine UA Negative (Negative); Ketones Urine Negative (Negative); Leukocyte Esterase Urine Negative (Negative); Nitrite Urine Negative (Negative); Protein Urine Trace (Negative); RBC Urine Automated 0-2 /hpf (0-2); Specific Gravity Urine > 1.045 (1.000-1.030); Urobilinogen Urine Negative (Negative); WBC Urine Automated 0-5 /hpf (0-5); pH Urine 5.5 (4.5-7.5)
--- NOTE | 2023-08-03 07:50 | XRay Report ---
XR chest 1V portable HISTORY: neuro deficit, acute stroke suspected COMPARISON: None. FINDINGS: The lungs are clear. Cardiac silhouette is normal in size. No pleural effusions. No pneumot horax. IMPRESSION: No acute process. ACT 112: Negative or not required by law. Electronically signed by: Augustus Higgins M.D. 08/03/2023 7:49 AM
[2023-08-03 08:45] LABS: Amphetamines+Metham, Urine Neg (Neg); Barbiturates, Urine Neg (Neg); Benzodiazepine, Urine Neg (Neg); Cocaine, Urine Neg (Neg); Fentanyl, Urine Neg (Neg); MDMA (Ecstacy), Urine Neg (Neg); Marijuana, Urine Neg (Neg); Methadone, Urine Neg (Neg); Opiate, Urine Neg (Neg); Phencyclidine, Urine Neg (Neg)
[2023-08-03] MEDS ORDERED: ENOXAPARIN INJ 40 MG/0.4 ML SYR SQ SCH (09:00)
[2023-08-03] MEDS: BRIMONIDINE TARTRATE 0.2% 5ML OPR SCH (09:03)
[2023-08-03] MEDS: PILOCARPINE HCL 4% OP SOLN 15 ML BTL OPR SCH (09:03)
[2023-08-03] MEDS: ENOXAPARIN INJ 40 MG/0.4 ML SYR SQ SCH (09:04)
[2023-08-03] MEDS: DORZOLAMIDE/TIMOLOL 22.3/6.8MG/ML 10 ML BTL OPB SCH (09:09)
[2023-08-03] MEDS: SODIUM CHLORIDE 5% (MURO) OP OINT 3.5 GM TUBE OPL SCH (09:12)
[2023-08-03] MEDS: SODIUM CHLORIDE 5% OP SOLN 15 ML BTL OPL SCH (09:13)
--- NOTE | 2023-08-03 10:06 | Neurology Consultation ---
Date of Consultation August 03, 2023 Assessment & Plan (1) Stroke-like symptom: Concern for stroke/TIA Recommend continued stroke work up to include the following: MRI brain with and without contrast- if tolerated Echocardiogram as part of complete stroke workup Continue frequent neurological assessments Obtain stat CT brain without contrast for any acute neurological decline Continue to monitor/control blood pressure & blood glucose Continue to monitor telemetry closely Recommend ZioPatch at DC if no evidence of arrhythmia during inpatient monitoring Continue to monitor renal and hepatic function, keep euvolemic Metabolic workup should include hgbA1c, fasting lipids, homocysteine, TSH, D Dimer Recommend DAPT for at least 3 weeks Recommend high dose statin therapy indefinitely if tolerated Ok from neurology perspective for VTE prophylaxis PT/OT/SLT to eval and treat Recommend eval for JULIAN and consider outpatient polysomnography Telehealth Consultation Telehealth Information Telehealth Information: I performed this visit using a real-time telehealth connection between my location and the patients location ([facility]). After connecting through interactive tele-video, patient was identified by name and date of and/or wristband check.Patient (or authorized healthcare associate sales representative) was informed that this was a telemedicine visit and it was being conducted confidentially over secure lines. My office door was closed and no one else was present in the room with me.Patient (or authorized healthcare associate sales representative) provided consent to proceed with the visit, expressed an understanding of privacy and security of the telemedicine visit, and gave permission to have a hospital associate sales representative in the room in order to assist with the visit and to conduct portions of the visit, as needed. I informed the patient (or authorized healthcare associate sales representative) that I reviewed their record and presented the opportunity for them to ask any questions regarding the visit today. The patient agreed to participate. History of Present Illness Reason for Consultation: Stroke like symptoms Requesting Physician: Dr. Ritchie Attending Physician: Edwar Briseno MD History of Present Illness 78yo male presented from incarceration facility with concern of left facial asymmetry and was witnessed to demonstrate difficulty ambulating appearing as if he was leaning to the left. He has undergone emergent stroke imaging including CT brain without contrast, personally reviewed today, revealing no overt evidence of hemorrhage. CT angiographic studies of head and neck, also personally reviewed today, revealing significant right P1 stenosis vs focal occlusion. Unfortunately he has reportedly not tolerated MRI brain. I have performed televideo consultation. He is alert to self. He is able to answer some questions appropriately. He can name objects on televideo monitor. Does not repeat phrases or follow multistep/embedded commands. He tells me that he doesn't know why he is here and he tells me he would know if he had a stroke. There are officers and RN at bedside during examination. No apparent facial asymmetry at this time. Motor strength appears equal/symmetric BUE and BLE extremities. He appears to lack insight regarding his current clinical condition. There is reported hx of dementia. Reported concern for AFIB via EMS transport. No reported tele events per RN at bedside. Allergies Allergy/AdvReac Type Severity Reaction Status Date / Time No Known Allergies Allergy Verified 08/02/23 21:38 Home Medications Medication Instructions Recorded Confirmed Type amlodipine 5 mg tablet 5 mg PO DAILY 08/02/23 08/02/23 History brimonidine 0.2 % eye drops 1 drp OPR BID 08/02/23 08/02/23 History dorzolamide-timolol (PF) 2 %-0.5 % 1 drp OPB BID 08/02/23 08/02/23 History eye drops in a dropperette (Cosopt (PF)) latanoprost 0.005 % eye drops 1 drp OPR HS 08/02/23 08/02/23 History pilocarpine HCl 4 % eye drops 1 drp OPR TID 08/02/23 08/02/23 History risperidone 1 mg tablet 1 mg PO HS 08/02/23 08/02/23 History risperidone 2 mg tablet 2 mg PO DAILY 08/02/23 08/02/23 History sodium chloride 5 % eye drops 1 drp OPL BID 08/02/23 08/02/23 History (Brian 128) sodium chloride 5 % eye ointment 1 applic OPL QID 08/02/23 08/02/23 History Patient History Social History Smoking Status: Current every day smoker Tobacco Type: Cigarettes Feels Safe at Home: Yes Physical Exam Neurological Examination: Mental Status: Alert to self, able to name objects and follow simple commands Fluency intact. Affect remains appropriate. CN testing: I: Difficult to reliably assess II:Difficult to reliably assess III/IV/: No evidence of gaze preference, hippus, nystagmus or roving eye movements V: Facial sensation difficult to reliably assess VII: Facial movements appear without evidence of asymmetry VIII: Hearing appears grossly intact to loud voice bilaterally IX/X: Difficult to reliably assess XI: Shoulder shrug appears symmetric/ grossly intact bilaterally XII: Tongue protrudes midline without evidence of biting Motor exam: Strength appears grossly intact/symmetric in all extremities Sensory: Difficult to reliably assess Coordination: Deferred Reflexes: Deferred Gait: Deferred Results & Data Vital Signs (Past 12 Hours) Vital Signs Temp Pulse Pulse Resp BP BP Pulse Ox 08/03/23 10:02 36.8 C 99 H 18 165/68 H 99 08/03/23 07:15 47 L 18 122/82 97 08/03/23 07:00 48 L 08/03/23 05:16 49 L 18 97/73 L 97 08/03/23 05:16 08/03/23 05:00 105/65 08/03/23 04:27 62 08/03/23 03:30 56 L 12 131/78 95 08/03/23 03:15 58 L 12 120/77 97 08/03/23 03:00 54 L 14 110/70 96 08/03/23 02:30 60 12 103/73 96 08/03/23 01:45 77 17 124/81 93 08/03/23 01:00 65 12 118/79 96 08/03/23 00:37 68 08/03/23 00:00 96/69 L 08/02/23 23:45 118/87 08/02/23 23:30 74 18 128/91 96 Pulse Ox O2 Del Method O2 Del Method 08/03/23 10:02 Room Air 08/03/23 07:15 Room Air 08/03/23 07:00 08/03/23 05:16 Room Air 08/03/23 05:16 97 Room Air 08/03/23 05:00 08/03/23 04:27 08/03/23 03:30 08/03/23 03:15 08/03/23 03:00 08/03/23 02:30 08/03/23 01:45 08/03/23 01:00 08/03/23 00:37 08/03/23 00:00 08/02/23 23:45 08/02/23 23:30 Laboratory Results Abnormal lab results 08/02/23 08/02/23 08/02/23 Range/Units 21:10 21:12 23:23 WBC (4.8-10.8) K/ul RBC (4.70-6.10) M/uL Hgb 13.9 L (14.0-18.0) g/dl POC Hgb 13.9 L (14.0-18.0) g/dl Hct 41.1 L (42.0-52.0) % POC Hct 41 L (42-52) % Lymph # (Auto) 1.09 L (1.20-3.40) K/uL APTT (21-31) Seconds Chloride 108 H (98-107) mmol/L POC Anion Gap 15.0 L (16-25) mmol/L POC BUN 22 H (7-18) mg/dl BUN 24 H (6-23) mg/dl BUN/Creatinine Ratio 21.6 H (10-20) Glucose 112 H (70-99(Fasting)) mg/dl POC Glucose (other) 111 H (70-99) mg/dl AST 40 H (13-39) U/L Ammonia (18-72) umol/L Troponin I High Sens 24.2 H 26.6 H (0-20) pg/ml Ur Specific [place] (1.000-1.030) Urine Protein (Negative) U Hyaline Cast (Auto) (0-2) /lpf 08/03/23 08/03/23 08/03/23 Range/Units 04:10 05:58 07:14 WBC 4.48 L (4.8-10.8) K/ul RBC 4.59 L (4.70-6.10) M/uL Hgb 13.1 L (14.0-18.0) g/dl POC Hgb (14.0-18.0) g/dl Hct 38.7 L (42.0-52.0) % POC Hct (42-52) % Lymph # (Auto) 1.10 L (1.20-3.40) K/uL APTT 32 H (21-31) Seconds Chloride 110 H (98-107) mmol/L POC Anion Gap (16-25) mmol/L POC BUN (7-18) mg/dl BUN (6-23) mg/dl BUN/Creatinine Ratio 21.9 H (10-20) Glucose (70-99(Fasting)) mg/dl POC Glucose (other) (70-99) mg/dl AST (13-39) U/L Ammonia 11.0 L (18-72) umol/L Troponin I High Sens 22.1 H (0-20) pg/ml Ur Specific [place] > 1.045 H (1.000-1.030) Urine Protein Trace H (Negative) U Hyaline Cast (Auto) 3-5 H (0-2) /lpf Diagnostic Findings Chest X-Ray 08/02/23 20:51 XR chest 1V portable HISTORY: neuro deficit, acute stroke suspected COMPARISON: None. FINDINGS: The lungs are clear. Cardiac silhouette is normal in size. No pleural effusions. No pneumothorax. IMPRESSION: No acute process. ACT 112: Negative or not required by law. Electronically signed by: Augustus Higgins M.D. 08/03/2023 7:[address] 08/02/23 20:51 Exam(s): CT HEAD Without Contrast EXAM: CT Head Without Intravenous Contrast CLINICAL HISTORY: Reason for exam: neuro deficit, acute stroke suspected. TECHNIQUE: Axial computed tomography images of the head/brain without intravenous contrast. CTDI is 31.65 mGy and DLP is 320.01 mGy-cm. Automated exposure control was utilized for the study. A dose lowering technique was utilized adhering to the principles of ALARA. COMPARISON: No relevant prior studies available. FINDINGS: Study is suboptimal secondary to motion artifact. Brain: Unremarkable. No hemorrhage. No significant white matter disease. No edema. Ventricles: Mild to moderate ventriculomegaly. Bones/joints: Unremarkable. No acute fracture. Soft tissues: Unremarkable. Sinuses: Unremarkable as visualized. No acute sinusitis. Mastoid air cells: Unremarkable as visualized. No mastoid effusion. IMPRESSION: No evidence of acute intracranial pathology. Electronically signed by: Shara Lugo MD 08/03/23 00:09 AM Head CTA 08/02/23 20:51 CR Exam(s): CTA HEAD With Contrast IV Amt: 120 ML OPTIRAY 320 EXAM: CT Angiography Head With Intravenous Contrast CLINICAL HISTORY: Reason for exam: neuro deficit, acute stroke suspected. TECHNIQUE: Axial computed tomographic angiography images of the head with intravenous contrast. CTDI is 67.93 mGy and DLP is 1098.96 mGy-cm. Automated exposure control was utilized for the study. A dose lowering technique was utilized adhering to the principles of ALARA. MIP reconstructed images were created and reviewed. CONTRAST: Patient received 120 ML OPTIRAY 320 of IV contrast COMPARISON: No relevant prior studies available. FINDINGS: Right internal carotid artery: No acute findings. Intracranial segment is patent with no significant stenosis. No aneurysm. Right anterior cerebral artery: Unremarkable. No occlusion or significant stenosis. No aneurysm. Right middle cerebral artery: Unremarkable. No occlusion or significant stenosis. No aneurysm. Right posterior cerebral artery: There is abrupt high-grade stenosis of the right P1 segment with recannulization and diminished enhancement of the distal vessel.. No aneurysm. Right vertebral artery: Unremarkable as visualized. Left internal carotid artery: No acute findings. Intracranial segment is patent with no significant stenosis. No aneurysm. Left anterior cerebral artery: Unremarkable. No occlusion or significant stenosis. No aneurysm. Left middle cerebral artery: Unremarkable. No occlusion or significant stenosis. No aneurysm. Left posterior cerebral artery: Unremarkable. No occlusion or significant stenosis. No aneurysm. Left vertebral artery: Unremarkable as visualized. Basilar artery: Unremarkable. No occlusion or significant stenosis. No aneurysm. IMPRESSION: Focal high-grade stenosis of the right P1 segment with diminished enhancement of the distal vessel concerning for acute thrombotic disease. Communications: Verify Receipt Electronically signed by: Shara Lugo MD 08/03/23 00:06 AM Neck CTA 08/02/23 20:51 Exam(s): CTA NECK With Contrast IV Amt: 120 ML OPTIRAY 320 EXAM: CT Angiography Neck With Intravenous Contrast CLINICAL HISTORY: Reason for exam: neuro deficit, acute stroke suspected. TECHNIQUE: Routine carotid CT angiography protocol was performed with intravenous contrast. NASCET criteria using the distal ICAs for comparison were used for evaluation of stenoses. CTDI is 64.34 mGy and DLP is 1098.96 mGy-cm. Automated exposure control was utilized for the study. A dose lowering technique was utilized adhering to the principles of ALARA. MIP reconstructed images were created and reviewed. CONTRAST: Patient received 120 ML OPTIRAY 320 of IV contrast COMPARISON: None. FINDINGS: VASCULATURE: Right common carotid artery: Unremarkable. No occlusion or significant stenosis. No dissection. Right internal carotid artery: Unremarkable. Extracranial segment is patent with no occlusion or significant stenosis. No dissection. Right external carotid artery: Unremarkable. No occlusion. Right vertebral artery: Unremarkable. No occlusion or significant stenosis. No dissection. Left common carotid artery: Unremarkable. No occlusion or significant stenosis. No dissection. Left internal carotid artery: Unremarkable. Extracranial segment is patent with no occlusion or significant stenosis. No dissection. Left external carotid artery: Unremarkable. No occlusion. Left vertebral artery: Unremarkable. No occlusion or significant stenosis. No dissection. NECK: Bones/joints: Unremarkable. No acute fracture. Soft tissues: Unremarkable. Lung apices: Clear. CAROTID STENOSIS REFERENCE USING NASCET CRITERIA: % ICA stenosis = (1 - narrowest ICA diameter/diameter of distal cervical ICA) x 100. Mild - <50% stenosis. Moderate - 50-69% stenosis. Severe - 70-94% stenosis. Near occlusion - 95-99% stenosis. Occluded - 100% stenosis. IMPRESSION: Negative CTA neck. Electronically signed by: Shara Lugo MD 08/03/23 00:10 AM KUB X-Ray 08/03/23 06:03 KUB CLINICAL HISTORY: MRI clearance. FINDINGS: An AP, portable, supine abdominal radiograph is obtained. No prior studies are available for comparison at the time of dictation. There is a nonobstructed abdominal bowel gas pattern. Moderate fecal retention is noted throughout the colon. No evidence of intraperitoneal free air is seen on this supine image. There are no abnormal abdominal calcifications. The bladder is filled with excreted IV contrast. A bladder diverticulum is noted. The skeletal structures are osteopenic and appear intact. There is moderate lumbosacral spondylosis. No radiodense/metallic foreign body is identified. IMPRESSION: 1. No radiodense/metallic foreign body is seen. 2. No bowel obstruction. 3. There is evidence of chronic bladder outlet obstruction. Electronically signed by: Alfred Kaiser M.D. 08/03/2023 6:42 AM Skull X-Ray 08/03/23 06:03 SKULL 2 VIEWS CLINICAL HISTORY: MRI clearance. FINDINGS: 2 views of the skull are obtained. Correlation is made with CT of the brain dated 08/02/2023. There is no radiodense/metallic foreign body seen in the region of the bony orbits. The bony orbits are intact as imaged. The visualized paranasal sinuses and the mastoid air cells appear clear. The calvarium appears intact. IMPRESSION: No radiodense/metallic foreign body is identified. ACT 112: Negative or not required by law. Electronically signed by: Alfred Kaiser M.D. 08/03/2023 6:53 AM Medications Administered Home Medications Medication Instructions Recorded Confirmed Last Taken amlodipine 5 mg tablet 5 mg PO DAILY 08/02/23 08/02/23 08/02/23 brimonidine 0.2 % eye drops 1 drp OPR BID 08/02/23 08/02/23 08/02/23 dorzolamide-timolol (PF) 2 %-0.5 % 1 drp OPB BID 08/02/23 08/02/23 08/02/23 eye drops in a dropperette (Cosopt (PF)) latanoprost 0.005 % eye drops 1 drp OPR HS 08/02/23 08/02/23 08/02/23 pilocarpine HCl 4 % eye drops 1 drp OPR TID 08/02/23 08/02/23 08/02/23 risperidone 1 mg tablet 1 mg PO HS 08/02/23 08/02/23 08/02/23 risperidone 2 mg tablet 2 mg PO DAILY 08/02/23 08/02/23 08/02/23 sodium chloride 5 % eye drops 1 drp OPL BID 08/02/23 08/02/23 08/02/23 (Brian 128) sodium chloride 5 % eye ointment 1 applic OPL QID 08/02/23 08/02/23 08/02/23 Active Medications Generic Name Dose Route Start Last Admin Trade Name Frankq PRN Reason Stop Dose Admin Brimonidine Tartrate 1 drops 08/03/23 09:00 08/03/23 09:03 Brimonidine Tartrate 0.2% 5ml OPR 09/02/23 08:59 1 drops BID ELISA Administration Dorzolamide/Timolol 1 drops 08/03/23 09:00 08/03/23 09:09 Dorzolamide/Timolol 22.3/6.8mg/Ml 10 Ml Btl OPB 09/02/23 08:59 Not Given BID ELISA Enoxaparin Sodium 40 mg 08/03/23 09:00 08/03/23 09:04 Enoxaparin Inj 40 Mg/0.4 Ml Syr SQ 09/02/23 08:59 40 mg QAM ELISA Administration Potassium Chloride 20 meq/ 1,010 mls @ 100 mls/hr 08/03/23 02:30 08/03/23 05:50 Lactated Ringer's IV 08/03/23 12:35 100 mls/hr .Q10H6M ONE Infusion Pilocarpine HCl 1 drops 08/03/23 09:00 08/03/23 09:03 Pilocarpine Hcl 4% Op Soln 15 Ml Btl OPR 09/02/23 08:59 1 drops TID ELISA Administration Sodium Chloride 1 drops 08/03/23 09:00 08/03/23 09:13 Sodium Chloride 5% Op Soln 15 Ml Btl OPL 09/02/23 08:59 1 drops BID ELISA Administration Sodium Chloride 1 appln 08/03/23 09:00 08/03/23 09:12 Sodium Chloride 5% (Brian) Op Oint 3.5 Gm Tube OPL 09/02/23 08:59 1 appln QID ELISA Administration
[2023-08-03] MEDS: risperiDONE 2 MG TABLET PO SCH (10:50)
[2023-08-03] MEDS: ATORVASTATIN 20 MG TAB PO SCH (10:56)
[2023-08-03] MEDS: LORazepam 0.5 MG in SYRINGE 0.25 ML IV ONE (14:15)
--- NOTE | 2023-08-03 18:03 | Hospitalist Progress Note ---
Date of Service August 03, 2023 Assessment & Plan (1) Stroke-like symptom: Plan: Possible facial droop left with reported leaning to the left side possible CVA, thrombotic disease on CT angio head MRI was not possible due to noncooperation No visual symptoms, no problem with speech and/or swallowing and does not have any focal neurodeficit Appreciate neurology input and recommendation MRI will be done eventually and the patient is agreeable to that Will have aspirin and Plavix for at least 21 days as per recommendation (2) Altered mental status: Plan: Came from dementia unit from the halfway Has been having occasional worsening of the dementia and may be contributed by use of Ativan Rule out UTI Transient A-fib as per EMS report, patient currently NSR Cardiology consult if with recurrent A-fib-if requires Hypertension Seems to be elevated and has been difficult to remeasure Agreeable to take oral medications Will start oral Norvasc for blood pressure Hyperglycemia rule out DM Past tobacco abuse Anxiety with agitation Received 1 dose of Ativan-will try to avoid any more Ativan as it may worsen dementia symptoms with acute delirium Will try Zyprexa ODT Check hemoglobin A1c, lipid profile Check UA DVT prophylaxis. Lovenox subcu Full code as per SCI Text document was generated using [employer] voice recognition software. It may contain grammatical or spelling errors. Kindly contact undersigned for clarification of any documentation item in question. Admission and Anticipated Discharge Date Admission Date: August 03, 2023 Subjective 08/03/2023 The patient was seen and examined in telemetry unit He was brought in from dementia unit and has not been cooperating with the care in the hospital He was talking to me and almost normally but remain pleasantly confused Agreed to participate in the care and agreed to have MRI to rule out any stroke Review of Systems Review of Systems: Unobtainable due to cognitive status Physical Exam Physical Exam: Lying in bed without any acute distress Constitutional: average body habitus; not ill appearing Eyes: PERRL, conjunctivae normal, anicteric sclerae ENMT: external ear and nose normal, oropharynx normal Neck: trachea midline, no thyromegaly Respiratory: no respiratory distress Auscultation: lungs clear to auscultation bilaterally Cardiovascular: Rate/Rhythm: regular rate and regular rhythm; not tachycardic Heart Sounds: normal S1 and normal S2 Gastrointestinal (Abdomen): Inspection/Auscultation: normal bowel sounds; abdomen not distended Percussion/Palpation: abdomen soft; abdomen nontender Neurologic: Pleasantly confused with acute exacerbation of confusion. Moves all extremities without any focal neurodeficit. No visual symptoms and no problems with speech and/or swallowing Results & Data Results & Data Vital Signs (Past 12 Hours) Vital Signs Temp Pulse Pulse Resp BP Pulse Ox O2 Del Method 08/03/23 15:30 74 08/03/23 12:49 36.3 C L 66 18 171/111 H 99 Room Air 08/03/23 10:03 65 08/03/23 10:02 36.8 C 99 H 18 165/68 H 99 Room Air 08/03/23 07:15 47 L 18 122/82 97 Room Air 08/03/23 07:00 48 L Laboratory Results Short CBC 08/02/23 08/03/23 Range/Units 21:10 05:58 WBC 6.40 4.48 L (4.8-10.8) K/ul Hgb 13.9 L 13.1 L (14.0-18.0) g/dl Hct 41.1 L 38.7 L (42.0-52.0) % Plt Count 148 136 (130-400) K/uL BMP 08/02/23 08/03/23 21:10 04:10 Sodium 142 142 Potassium 3.7 3.9 Chloride 108 H 110 H Carbon Dioxide 27 25 BUN 24 H 21 Creatinine 1.11 0.96 Glucose 112 H 90 Calcium 10.3 9.7 Liver Function 08/02/23 Range/Units 21:10 Total Bilirubin 0.6 (0.2-1.0) mg/dl AST 40 H (13-39) U/L ALT 14 (7-52) U/L Alkaline Phosphatase 56 (34-104) U/L Albumin 4.4 (3.4-5.0) gm/dl Urine 08/03/23 Range/Units 07:14 Urine Color Yellow Urine Appearance Clear (Clear) Urine pH 5.5 (4.5-7.5) Ur Specific [place] > 1.045 H (1.000-1.030) Urine Protein Trace H (Negative) Urine Glucose (UA) Negative (Negative) Medications Administered Current Inpatient Medications Acetaminophen (Acetaminophen 325 Mg Tab) 650 mg PO QID PRN PRN Reason: pain/fever Stop: 09/02/23 03:23 Aspirin (Aspirin 81 Mg Ectab) 81 mg PO DAILY [facility] Stop: 09/03/23 08:59 Atorvastatin Calcium (Atorvastatin 20 Mg Tab) 20 mg PO QAM [facility] Stop: 09/02/23 08:59 Last Admin: 08/03/23 10:56 Dose: 20 mg Brimonidine Tartrate (Brimonidine Tartrate 0.2% 5ml) 1 drops OPR BID ELISA Stop: 09/02/23 08:59 Last Admin: 08/03/23 09:03 Dose: 1 drops Clopidogrel Bisulfate (Clopidogrel Bisulfate 75 Mg Tab) 75 mg PO QAM [facility] Stop: 09/02/23 14:44 Dorzolamide/Timolol (Dorzolamide/Timolol 22.3/6.8mg/Ml 10 Ml Btl) 1 drops OPB BID [facility] Stop: 09/02/23 08:59 Last Admin: 08/03/23 09:09 Dose: Not Given Enoxaparin Sodium (Enoxaparin Inj 40 Mg/0.4 Ml Syr) 40 mg SQ QAM [facility] Stop: 09/02/23 08:59 Last Admin: 08/03/23 09:04 Dose: 40 mg Promethazine HCl 6.25 mg/ (Sodium Chloride) 50.25 mls @ 201 mls/hr IV Q6H PRN PRN Reason: Nausea And Vomiting Stop: 09/02/23 03:23 Latanoprost (Latanoprost 0.005% Op Soln 2.5 Ml Btl) 1 drops OPR HS [facility] Stop: 09/02/23 20:59 Pilocarpine HCl (Pilocarpine Hcl 4% Op Soln 15 Ml Btl) 1 drops OPR TID ELISA Stop: 09/02/23 08:59 Last Admin: 08/03/23 14:15 Dose: Not Given Risperidone (Risperidone 2 Mg Tablet) 2 mg PO DAILY ELISA Stop: 09/02/23 08:59 Last Admin: 08/03/23 10:50 Dose: 2 mg Risperidone (Risperidone 1 Mg Tablet) 1 mg PO HS [facility] Stop: 09/02/23 20:59 Sodium Chloride (Sodium Chloride 5% Op Soln 15 Ml Btl) 1 drops OPL BID ELISA Stop: 09/02/23 08:59 Last Admin: 08/03/23 09:13 Dose: 1 drops Sodium Chloride (Sodium Chloride 5% (Brian) Op Oint 3.5 Gm Tube) 1 appln OPL QID ELISA Stop: 09/02/23 08:59 Last Admin: 08/03/23 14:14 Dose: Not Given
[2023-08-03] MEDS: CLOPIDOGREL BISULFATE 75 MG TAB PO SCH (18:32)
[2023-08-03] MEDS: OLANZapine ZYDIS 5 MG ORALLY DIS. TAB PO ONE (18:32)
[2023-08-03] MEDS: amLODIPine BESYLATE 5 MG TAB PO ONE (18:32)
[2023-08-04 04:43] LABS: EAG mmol/L 6.6 mmol/L; HA1C 5.8 (<5.7)
[2023-08-04] MEDS: LATANOPROST 0.005% OP SOLN 2.5 ML BTL OPR SCH (05:54)
[2023-08-04] MEDS: risperiDONE 1 MG TABLET PO SCH (05:54)
[2023-08-04] MEDS: ASPIRIN 81 MG ECTAB PO SCH (07:52)
[2023-08-04] MEDS: amLODIPine BESYLATE 5 MG TAB PO SCH (07:53)
[2023-08-04] MEDS: OLANZapine ZYDIS 5 MG ORALLY DIS. TAB PO STA (11:59)
[2023-08-04] MEDS: GADOBUTROL 65ML VIAL IV ONE (13:00)
--- NOTE | 2023-08-04 13:53 | Magnetic Resonance Report ---
MR brain wo/w con HISTORY: 78 years-old Male r/o stroke acute stroke like symptoms with altered mental status COMPARISON: Head CT 08/02/2023 TECHNIQUE: Multiplanar multisequence MRI of the brain was obtained with and without IV contrast. FINDINGS: There is no restricted diffusion to suggest acute or subacute infarct. Midline structures appear unre markable. Study is mildly motion degraded. No acute intracranial hemorrhage, midline shift, hydroceph alus or abnormal extra-axial collection. There is asymmetric dilation of the right lateral ventricle compared to the left which is unchanged. Involutional changes with mild T2/FLAIR hyperintense foci th roughout the white matter. Cerebral venous sinuses and major arterial flow voids appear patent. Skull, orbits and soft tissues a re unremarkable. Prior bilateral lens repair. Mastoid air cells and paranasal sinuses are generally c lear. No abnormal enhancement. IMPRESSION: 1. No acute intracranial abnormality. No acute or subacute infarct. 2. Involutional changes with mild chronic microvascular ischemic disease. 3. Asymmetric dilation of the right lateral ventricle compared to left, possibly developmental. 4. No abnormal enhancement. ACT 112: Negative or not required by law. The above report was generated using voice recognition software. It may contain grammatical, syntax o r spelling errors. Electronically signed by: Antonio Muniz M.D. 08/04/2023 1:51 PM
--- NOTE | 2023-08-04 15:59 | Hospitalist Progress Note ---
Date of Service August 04, 2023 Assessment & Plan (1) Stroke-like symptom: Plan: Possible facial droop left with reported leaning to the left side possible CVA, thrombotic disease on CT angio head MRI was not possible due to noncooperation No visual symptoms, no problem with speech and/or swallowing and does not have any focal neurodeficit Appreciate neurology input and recommendation MRI will be done eventually and the patient is agreeable to that Will have aspirin and Plavix for at least 21 days as per recommendation No more neurological symptoms MRI with and without contrast just has been negative Likely discharge tomorrow (2) Altered mental status: Plan: [facility] Has been having occasional worsening of the dementia and may be contributed by use of Ativan Rule out UTI Will not need an antibiotic Transient A-fib as per EMS report, patient currently NSR Cardiology consult if with recurrent A-fib-if requires Remains in A-fib with a rate of 115 Hypertension Seems to be elevated and has been difficult to remeasure Agreeable to take oral medications Will start oral Norvasc for blood pressure Blood pressure is controlled Hyperglycemia rule out DM Past tobacco abuse Anxiety with agitation Received 1 dose of Ativan-will try to avoid any more Ativan as it may worsen dementia symptoms with acute delirium Will try Zyprexa ODT Check hemoglobin A1c, lipid profile Check UA DVT prophylaxis. Lovenox subcu Full code as per SCI Text document was generated using [employer] voice recognition software. It may contain grammatical or spelling errors. Kindly contact undersigned for clarification of any documentation item in question. Admission and Anticipated Discharge Date Admission Date: August 03, 2023 Subjective 08/03/2023 The patient was seen and examined in telemetry unit He was brought in from dementia unit and has not been cooperating with the care in the hospital He was talking to me and almost normally but remain pleasantly confused Agreed to participate in the care and agreed to have MRI to rule out any stroke 08/04/2023 The patient was seen and examined in telemetry unit He was refusing medications this morning but later on wanted to take everything He has had MRI that came out to be Remains free from any other significant symptoms Review of Systems Review of Systems: Could not be reliably obtained secondary to obtunded state Physical Exam Physical Exam: Lying in bed without any acute distress Constitutional: average body habitus; not ill appearing Eyes: PERRL, conjunctivae normal, anicteric sclerae ENMT: external ear and nose normal, oropharynx normal Neck: trachea midline, no thyromegaly Respiratory: no respiratory distress Auscultation: lungs clear to auscultation bilaterally Cardiovascular: Rate/Rhythm: regular rate and regular rhythm; not tachycardic Heart Sounds: normal S1 and normal S2 Gastrointestinal (Abdomen): Inspection/Auscultation: normal bowel sounds; abdomen not distended Percussion/Palpation: abdomen soft; abdomen nontender Musculoskeletal: No acute arthritis involving any joint Neurologic: Alert, awake and oriented x 3. No focal sensory or motor deficit appreciated Lymphatic: no cervical or axillary lymphadenopathy Results & Data Results & Data Vital Signs (Past 12 Hours) Vital Signs Temp Pulse Pulse Resp BP BP Pulse Ox 08/04/23 14:55 36.6 C 199 H 18 135/82 96 08/04/23 14:37 120 H 08/04/23 12:02 36.7 C 91 H 18 182/98 H 95 08/04/23 07:51 36.4 C L 73 18 142/90 H 97 08/04/23 06:34 53 L 08/04/23 04:31 36.5 C 62 16 148/103 H 95 O2 Del Method 08/04/23 14:55 Room Air 08/04/23 14:37 08/04/23 12:02 Room Air 08/04/23 07:51 Room Air 08/04/23 06:34 08/04/23 04:31 Room Air Medications Administered Current Inpatient Medications Acetaminophen (Acetaminophen 325 Mg Tab) 650 mg PO QID PRN PRN Reason: pain/fever Stop: 09/02/23 03:23 Amlodipine Besylate (Amlodipine Besylate 5 Mg Tab) 5 mg PO [facility] Stop: 09/03/23 08:59 Last Admin: 08/04/23 07:53 Dose: 5 mg Aspirin (Aspirin 81 Mg Ectab) 81 mg PO DAILY [facility] Stop: 09/03/23 08:59 Last Admin: 08/04/23 07:52 Dose: 81 mg Atorvastatin Calcium (Atorvastatin 20 Mg Tab) 20 mg PO QAM [facility] Stop: 09/02/23 08:59 Last Admin: 08/04/23 07:53 Dose: 20 mg Brimonidine Tartrate (Brimonidine Tartrate 0.2% 5ml) 1 drops OPR BID [facility] Stop: 09/02/23 08:59 Last Admin: 08/04/23 07:54 Dose: 1 drops Clopidogrel Bisulfate (Clopidogrel Bisulfate 75 Mg Tab) 75 mg PO QAM [facility] Stop: 09/02/23 14:44 Last Admin: 08/04/23 07:53 Dose: 75 mg Dorzolamide/Timolol (Dorzolamide/Timolol 22.3/6.8mg/Ml 10 Ml Btl) 1 drops OPB BID [facility] Stop: 09/02/23 08:59 Last Admin: 08/04/23 07:54 Dose: 1 drops Enoxaparin Sodium (Enoxaparin Inj 40 Mg/0.4 Ml Syr) 40 mg SQ QAM [facility] Stop: 09/02/23 08:59 Last Admin: 08/04/23 07:53 Dose: 40 mg Promethazine HCl 6.25 mg/ (Sodium Chloride) 50.25 mls @ 201 mls/hr IV Q6H PRN PRN Reason: Nausea And Vomiting Stop: 09/02/23 03:23 Latanoprost (Latanoprost 0.005% Op Soln 2.5 Ml Btl) 1 drops OPR HS [facility] Stop: 09/02/23 20:59 Last Admin: 08/04/23 05:54 Dose: Not Given Pilocarpine HCl (Pilocarpine Hcl 4% Op Soln 15 Ml Btl) 1 drops OPR TID [facility] Stop: 09/02/23 08:59 Last Admin: 08/04/23 13:34 Dose: 1 drops Risperidone (Risperidone 2 Mg Tablet) 2 mg PO DAILY [facility] Stop: 09/02/23 08:59 Last Admin: 08/04/23 07:53 Dose: 2 mg Risperidone (Risperidone 1 Mg Tablet) 1 mg PO HS [facility] Stop: 09/02/23 20:59 Last Admin: 08/04/23 05:54 Dose: Not Given Sodium Chloride (Sodium Chloride 5% Op Soln 15 Ml Btl) 1 drops OPL BID [facility] Stop: 09/02/23 08:59 Last Admin: 08/04/23 07:54 Dose: 1 drops Sodium Chloride (Sodium Chloride 5% (Brian) Op Oint 3.5 Gm Tube) 1 appln OPL QID [facility] Stop: 09/02/23 08:59 Last Admin: 08/04/23 12:02 Dose: 1 appln
[2023-08-04] MEDS: OLANZapine ZYDIS 5 MG ORALLY DIS. TAB PO ONE (16:46)
[2023-08-04] MEDS: OLANZapine 10 MG/2.1 ML SDV IM PRN (18:06)
[2023-08-05 06:39] LABS: Basophils # (auto) 0.01 K/uL (0.00-0.20); Basophils % (auto) 0.2 %; Hematocrit (blood only) 43.2 % (42.0-52.0); Hemoglobin 14.9 g/dl (14.0-18.0); Immature Granulocytes # (auto) 0.01 K/uL (0.01-0.20); Immature Granulocytes % (auto) 0.2 %; Lymphocytes # (auto) 0.66 K/uL (1.20-3.40); Lymphocytes % (auto) 11.8 %; Mean Corpuscular Hemoglobin 27.9 pg (25.0-34.0); Mean Corpuscular Hgb Conc 34.5 g/dL (32.0-36.0); Mean Corpuscular Volume 80.9 fL (80.0-100.0); Mean Platelet Volume 9.2 fL (9.4-12.4); Monocytes # (auto) 0.33 K/uL (0.11-0.59); Monocytes % (auto) 5.9 %; Neutrophils % (auto) 81.9 %; Platelet Count 152 K/uL (130-400); RDW Coefficient of Variation 12.8 % (11.5-14.5); Red Blood Count 5.34 M/uL (4.70-6.10); White Blood Count 5.61 K/ul (4.8-10.8)
[2023-08-05 06:56] LABS: BUN Creatinine Ratio 15.5 (10-20); Calcium 9.7 mg/dl (8.6-10.3); Creatinine Clr Calc Pharmacy 74.7 ml/min; Est GFR (African American) 98.6 ml/min; Est GFR (Non-African American) 85.1 ml/min; Magnesium 1.8 mg/dl (1.7-2.4); Potassium 4.1 mmol/L (3.5-5.1)
--- NOTE | 2023-08-05 10:40 | Hospitalist Progress Note ---
Date of Service August 05, 2023 Assessment & Plan (1) Stroke-like symptom: Plan: Possible facial droop left with reported leaning to the left side possible CVA, thrombotic disease on CT angio head MRI was not possible due to noncooperation No visual symptoms, no problem with speech and/or swallowing and does not have any focal neurodeficit Appreciate neurology input and recommendation MRI will be done eventually and the patient is agreeable to that Will have aspirin and Plavix for at least 21 days as per recommendation No more neurological symptoms MRI with and without contrast just has been negative Remains medically stable to be discharged (2) Altered mental status: Plan: Came from dementia unit from the senior living Has been having occasional worsening of the dementia and may be contributed by use of Ativan Rule out UTI Will not need an antibiotic Transient A-fib as per EMS report, patient currently NSR Cardiology consult if with recurrent A-fib-if requires Remains in A-fib with a rate of 115 Hypertension Seems to be elevated and has been difficult to remeasure Agreeable to take oral medications Will start oral Norvasc for blood pressure Blood pressure is controlled Hyperglycemia rule out DM Past tobacco abuse Known dementia-came in from the dementia unit at the senior living Anxiety with agitation Received 1 dose of Ativan-will try to avoid any more Ativan as it may worsen dem entia symptoms with acute delirium Will try Zyprexa ODT Remains otherwise stable to be discharged today Check hemoglobin A1c-5.8, lipid profile-noted Check UA DVT prophylaxis. Lovenox subcu Full code as per SCI Text document was generated using [employer] voice recognition software. It may contain grammatical or spelling errors. Kindly contact undersigned for clarification of any documentation item in question. Admission and Anticipated Discharge Date Admission Date: August 03, 2023 Subjective 08/03/2023 The patient was seen and examined in telemetry unit He was brought in from dementia unit and has not been cooperating with the care in the hospital He was talking to me and almost normally but remain pleasantly confused Agreed to participate in the care and agreed to have MRI to rule out any stroke 08/04/2023 The patient was seen and examined in telemetry unit He was refusing medications this morning but later on wanted to take everything He has had MRI that came out to be Remains free from any other significant symptoms 08/05/2023 The patient was seen and examined in telemetry unit He was agitated last evening and required IM Zyprexa Has been doing fine this morning Still requiring restraint Otherwise medically stable to be transferred to the senior living Review of Systems Review of Systems: Could not be reliably obtained secondary to obtunded state Physical Exam Physical Exam: Lying in bed without any acute distress Constitutional: average body habitus; not ill appearing Eyes: PERRL, conjunctivae normal, anicteric sclerae ENMT: external ear and nose normal, oropharynx normal Neck: trachea midline, no thyromegaly Respiratory: no respiratory distress Auscultation: lungs clear to auscultation bilaterally Cardiovascular: Rate/Rhythm: regular rate and regular rhythm; not tachycardic Heart Sounds: normal S1 and normal S2 Gastrointestinal (Abdomen): Inspection/Auscultation: normal bowel sounds; abdomen not distended Percussion/Palpation: abdomen soft; abdomen nontender Musculoskeletal: No acute arthritis involving any of the joint Neurologic: Alert and awake. Spitting at nursing staff. Wants to go back to senior living Lymphatic: no cervical or axillary lymphadenopathy Results & Data Results & Data Vital Signs (Past 12 Hours) Vital Signs Temp Pulse Pulse Resp BP Pulse Ox O2 Del Method 08/05/23 07:53 37.2 C 90 18 133/90 94 Room Air 08/05/23 07:38 97 H 08/05/23 03:26 37.1 C 104 H 20 135/74 99 Room Air 08/05/23 00:52 36.7 C 107 H 18 144/80 H 98 Room Air Laboratory Results Short CBC 08/05/23 Range/Units 06:22 WBC 5.61 (4.8-10.8) K/ul Hgb 14.9 (14.0-18.0) g/dl Hct 43.2 (42.0-52.0) % Plt Count 152 (130-400) K/uL BMP 08/05/23 06:22 Sodium 140 Potassium 4.1 Chloride 105 Carbon Dioxide 23 BUN 13 Creatinine 0.84 Glucose 125 H Calcium 9.7 Medications Administered Current Inpatient Medications Acetaminophen (Acetaminophen 325 Mg Tab) 650 mg PO QID PRN PRN Reason: pain/fever Stop: 09/02/23 03:23 Amlodipine Besylate (A[facility]ipine Besylate 5 Mg Tab) [facility] Stop: 09/03/23 08:59 Last Admin: 08/05/23 10:24 Dose: 5 mg Aspirin (Aspirin 81 Mg Ectab) 81 mg PO DAILY [facility] Stop: 09/03/23 08:59 Last Admin: 08/05/23 10:24 Dose: 81 mg Atorvastatin Calcium (Atorvastatin 20 Mg Tab) 20 mg PO QAM [facility] Stop: 09/02/23 08:59 Last Admin: 08/05/23 10:25 Dose: 20 mg Brimonidine Tartrate (Brimonidine Tartrate 0.2% 5ml) 1 drops OPR BID [facility] Stop: 09/02/23 08:59 Last Admin: 08/05/23 10:33 Dose: Not Given Clopidogrel Bisulfate (Clopidogrel Bisulfate 75 Mg Tab) 75 mg PO QAM [facility] Stop: 09/02/23 14:44 Last Admin: 08/05/23 10:25 Dose: 75 mg Dorzolamide/Timolol (Dorzolamide/Timolol 22.3/6.8mg/Ml 10 Ml Btl) 1 drops OPB BID [facility] Stop: 09/02/23 08:59 Last Admin: 08/05/23 10:34 Dose: Not Given Enoxaparin Sodium (Enoxaparin Inj 40 Mg/0.4 Ml Syr) 40 mg SQ QAM [facility] Stop: 09/02/23 08:59 Last Admin: 08/05/23 10:28 Dose: 40 mg Promethazine HCl 6.25 mg/ (Sodium Chloride) 50.25 mls @ 201 mls/hr IV Q6H PRN PRN Reason: Nausea And Vomiting Stop: 09/02/23 03:23 Latanoprost (Latanoprost 0.005% Op Soln 2.5 Ml Btl) 1 drops OPR HS [facility] Stop: 09/02/23 20:59 Last Admin: 08/04/23 22:37 Dose: Not Given Olanzapine (Olanzapine 10 Mg/2.1 Ml Sdv) 5 mg IM Q6H PRN PRN Reason: Agitation Stop: 09/03/23 17:59 Last Admin: 08/04/23 18:06 Dose: 5 mg Pilocarpine HCl (Pilocarpine Hcl 4% Op Soln 15 Ml Btl) 1 drops OPR TID [facility] Stop: 09/02/23 08:59 Last Admin: 08/05/23 10:34 Dose: Not Given Risperidone (Risperidone 2 Mg Tablet) 2 mg PO DAILY [facility] Stop: 09/02/23 08:59 Last Admin: 08/05/23 10:26 Dose: 2 mg Risperidone (Risperidone 1 Mg Tablet) 1 mg PO HS [facility] Stop: 09/02/23 20:59 Last Admin: 08/04/23 22:38 Dose: Not Given Sodium Chloride (Sodium Chloride 5% Op Soln 15 Ml Btl) 1 drops OPL BID [facility] Stop: 09/02/23 08:59 Last Admin: 08/05/23 10:34 Dose: Not Given Sodium Chloride (Sodium Chloride 5% (Brian) Op Oint 3.5 Gm Tube) 1 appln OPL QID [facility] Stop: 09/02/23 08:59 Last Admin: 08/05/23 10:34 Dose: Not Given
--- NOTE | 2023-08-05 16:29 | Discharge Summary ---
Date of Service August 05, 2023 Admission HPI Per Admitting Provider History obtained from ER provider and records. Unable to obtain history from patient secondary to obtunded state. Medical history significant for hypertension, dementia, glaucoma, tobacco abuse as per records. Patient noted to be confused last night. Having trouble walking and leaning to the left side. EMS called to correctional facility. Possible A-fib during transport as per report. Patient brought to the ER for evaluation. Medical History as above Surgical History : Could not be obtained due to obtunded state Family History : Could not be obtained due to obtunded state Personal/Social history : Past tobacco abuse, detention inmate Admission Exam Per Admitting Provider Physical Exam: GENERAL: Obtunded, no respiratory distress SKIN: Normal color, warm HEENT: [place] palpebral conjunctivae, possible left facial droop, no ptosis, dry buccal mucosa NECK : Supple, no tenderness CHEST : Decreased breath sounds, no tenderness HEART : RRR, no obvious murmurs ABDOMEN: Some distention, nontender EXTREMITIES : No LE swelling/tenderness, no other conspicuous deformities noted NEUROLOGIC : Obtunded, possible left facial droop, gait and stance not assessed Principal Diagnosis Strokelike symptoms, no CVA, hypertension, anxiety with occasional agitation, known dementia Discharge Exam Lying in bed without any acute distress Constitutional average body habitus; not ill appearing Eyes PERRL, conjunctivae normal, anicteric sclerae ENMT external ear and nose normal, oropharynx normal Neck trachea midline, no thyromegaly Respiratory no respiratory distress Auscultation: lungs clear to auscultation bilaterally Cardiovascular Rate/Rhythm: regular rate and regular rhythm; not tachycardic Heart Sounds: normal S1 and normal S2 Gastrointestinal (Abdomen) Inspection/Auscultation: normal bowel sounds; abdomen not distended Percussion/Palpation: abdomen soft; abdomen nontender Lymphatic no cervical or axillary lymphadenopathy Discharge Data Allergies Allergy/AdvReac Type Severity Reaction Status Date / Time No Known Allergies Allergy Verified 08/02/23 21:38 Consultations 08/03/23 02:54 ED Decision to Admit Stat 08/03/23 08:54 Consult Neurology Routine Ordered Studies 08/02/23 20:51 CT angio head w con Stat CT angio neck with con Stat CT head/brain wo con Stat 08/04/23 10:25 MRI Brain [MR brain wo/w con] Urgent Hospital Course (1) Stroke-like symptom: Possible facial droop left with reported leaning to the left side possible CVA, thrombotic disease on CT angio head MRI was not possible due to noncooperation No visual symptoms, no problem with speech and/or swallowing and does not have any focal neurodeficit Appreciate neurology input and recommendation MRI will be done eventually and the patient is agreeable to that Will have aspirin and Plavix for at least 21 days as per recommendation No more neurological symptoms MRI with and without contrast just has been negative Remains medically stable to be discharged (2) Altered mental status: Came from dementia unit from the detention Has been having occasional worsening of the dementia and may be contributed by use of Ativan Rule out UTI Will not need an antibiotic Transient A-fib as per EMS report, patient currently NSR Cardiology consult if with recurrent A-fib-if requires Remains in A-fib with a rate of 115 Hypertension Seems to be elevated and has been difficult to remeasure Agreeable to take oral medications Will start oral Norvasc for blood pressure Blood pressure is controlled Hyperglycemia rule out DM Past tobacco abuse Known dementia-came in from the dementia unit at the detention Anxiety with agitation Received 1 dose of Ativan-will try to avoid any more Ativan as it may worsen dementia symptoms with acute delirium Will try Zyprexa ODT Remains otherwise stable to be discharged today Check hemoglobin A1c-5.8, lipid profile-noted Check UA DVT prophylaxis. Lovenox subcu Full code as per SCI Text document was generated using [employer] voice recognition software. It may contain grammatical or spelling errors. Kindly contact undersigned for clarification of any documentation item in question. Total Time Total Time Spent Total Time Spent (In Minutes): 40 minutes Discharge Plan Discharge Items Patient Disposition: Correction[facility] Reason For Visit: PAF, POSS CVA Discharge Diagnosis: Strokelike symptoms, no CVA, hypertension, anxiety with occasional agitation, known dementia Condition on Discharge: Fair Activity: Resume your previous activity Non-emergency contact: Primary Care Provider Call non-emergency contact if: you have any medication questions and your symptoms worsen Follow-up/Referrals: Eben REHMAN [Primary Care Provider] - Diet: Regular and Low Sodium (2gm) Diet Comment: Minced and moist Addtl Attending Provider Instructions: Please take precaution to avoid falls Continue aspirin Plavix for for a total of 21 days and then aspirin alone All other medications will be continued as before Pending Studies at Discharge: No Skilled Items Patient informed of condition?: Yes DNR: No Discharge Level of Care: Other Communicable Disease: No Discharge Prognosis: Stable Lines: None Urinary Catheter: No Medications and DC Order Prescriptions: New atorvastatin 20 mg Tablet 20 mg PO QAM Qty: 3 0RF clopidogrel 75 mg Tablet 75 mg PO QAM Qty: 18 0RF aspirin 81 mg Tablet,Delayed Release (Dr/Ec) 81 mg PO DAILY Qty: 30 0RF Continued sodium chloride [Brian 128] 5 % Drops 1 drp OPL BID latanoprost 0.005 % Drops 1 drp OPR HS amlodipine 5 mg Tablet 5 mg PO DAILY risperidone 2 mg Tablet 2 mg PO DAILY sodium chloride 5 % Ointment 1 applic OPL QID Rx Instructions: 1/4 INCH brimonidine 0.2 % Drops 1 drp OPR BID Rx Instructions: administer approximately 8 hours apart pilocarpine HCl 4 % Drops 1 drp OPR TID risperidone 1 mg Tablet 1 mg PO HS dorzolamide-timolol (PF) [Cosopt (PF)] 2-0.5 % Dropperette 1 drp OPB BID [facility]Other Patient Handouts: ED Confusion Admission Data Admit Date/Time: 08/03/23 02:48 Attending Provider: Edwar Briseno Admit Provider: Sorin Ritchie Primary Care Provider: Eben REHMAN Other Providers: Sorin Ritchie; Blessing Lerma; Tarik Oliver; Blessing Pickard; Lucien Huang; Juanito Arellano; Waylon Walsh; Cirilo Maria; Judith Miller; Les Wade; Ryland Bonilla; Luna Martinez; Mike Jacobson; Savannah Gonzalez; Rhina Garcia; Cirilo Elliott Other Interventions: Discharge Summary Assessment (RN) Last Done: 08/05/23 14:12
--- NOTE | 2023-08-06 05:49 | Electrocardiogram Report ---
Test Reason : Blood Pressure : / mmHG Vent. Rate : 088 BPM Atrial Rate : 088 BPM P-R Int : 198 ms QRS Dur : 086 ms QT Int : 340 ms P-R-T Axes : 104 -42 048 degrees QTc Int : 411 ms Normal sinus rhythm Left axis deviation Abnormal ECG No previous ECGs available Confirmed by Luiz Hernandez ([id number]) on 08/06/2023 5:49:05 AM Referred By: [facility] Confirmed By:Luiz Hernandez
--- NOTE | 2023-08-06 05:49 | Electrocardiogram Report ---
Test Reason : Blood Pressure : / mmHG Vent. Rate : 115 BPM Atrial Rate : 115 BPM P-R Int : 198 ms QRS Dur : 088 ms QT Int : 302 ms P-R-T Axes : 087 -50 044 degrees QTc Int : 417 ms Poor data quality, interpretation may be adversely affected Sinus tachycardia Left axis deviation Cannot rule out Anterior infarct , age undetermined Abnormal ECG When compared with ECG of 02-AUG-2023 21:01, No significant change Confirmed by Luiz Hernandez ([id number]) on 08/06/2023 5:49:40 AM Referred By: [facility] Confirmed By:Luiz Hernandez
== END 2023-08-05 16:39 ==
LOC: ED 20:38 → EDINP 20:38 → 4W 08-03 04:21